=== PATIENT | female | born 1995 | race Caucasian/White ===

== ENCOUNTER → 2019-09-07 13:53 | Outpatient (CLI) | payer OTHER, MEDICAID, SELFPAY ==
[2019-09-07 14:50] LABS: Hemoglobin 13.6 g/dL (12.0-16.0); Mean Corpuscular HGB Conc 34.1 % (30-36); Mean Corpuscular Hemoglobin 31.9 PG (26-34); Mean Corpuscular Volume 93.8 fL (80-100); Platelet Count 241 X10^3/uL (150-400); Red Blood Cell Count 4.26 X10^6/uL (4.0-5.2); Red Cell Distribution Width 12.4 % (11.6-14.8); White Blood Cell Count 6.5 X10^3/uL (4.5-11.0)
[2019-09-07 15:38] LABS: Blood Urea Nitrogen 13 mg/dL (7-17); Calcium 9.9 mg/dL (8.4-10.2); Carbon Dioxide 26 mmol/L (22-32); Chloride 102 mmol/L (98-107); Estimated Glomerular Filt Rate > 60.0 mL/min (>60); Glucose 86 mg/dL (70-100); HEMOLYSIS < 15 (0-50); Potassium 3.8 mmol/L (3.4-5.1); Sodium 138 mmol/L (137-145)
[2019-09-07 16:08] LABS: TSH w/ Reflex to FT4 1.06 uIU/mL (0.47-4.68)
[2019-09-07 20:02] LABS: Vitamin D 25 Hydroxy (D3) 33.1 ng/mL (30.0-100.0)
== END ==
PROVIDERS: PCP Registered Nurse Diabetes Educator; Referring Provider Registered Nurse Diabetes Educator; Visit Provider Registered Nurse Diabetes Educator
DX: R45.89 Other symptoms and signs involving emotional state (principal); R53.83 Other fatigue
CPT/HCPCS: 36415; 80048; 82306; 84443; 85027

== ENCOUNTER → 2019-11-03 08:12 | Outpatient (CLI) | payer OTHER, MEDICAID, SELFPAY ==
--- NOTE | 2019-11-03 08:13 | DI.US.S_ITS ---
PROCEDURE: US PELVIC COMPLETE INDICATIONS: DYSMENORRHEA TECHNIQUE: Real-time scanning was performed of the pelvic organs, with image documentation. Additional endovaginal scanning was necessary due to incomplete visualization of the adnexal and endometrial structures by transabdominal scanning. COMPARISON: None. FINDINGS: Transabdominal scanning: Limited scanning through the kidneys shows no hydronephrosis. No pathologic free abdominal or pelvic fluid. Endovaginal scanning: Uterus: Uterus is normal in size at 6.8 x 3.3 x 4.3 cm. The endometrium measures 8.5 mm in combined thickness. There is no endometrial mass or fluid. No discrete uterine fibroid. Ovaries: Right ovary measures 2.8 x 1.6 x 2.6 centimeters in size. Left ovary measures 2.6 x 2.3 x 2.2 cm in size. No gross solid appearing ovarian lesion. Bilateral ovarian follicles are noted measures up to 11 x 7 millimeters in size in right ovary. Normal blood flow is seen in bilateral ovaries on color Doppler images. IMPRESSION: Unremarkable ultrasound examination of uterus and bilateral ovaries. Dictated by: Osvaldo Rojas M.D. on 11/03/2019 at 9:02 Approved by: Osvaldo Rojas M.D. on 11/03/2019 at 9:12
== END ==
PROVIDERS: PCP Registered Nurse Diabetes Educator; Referring Provider Registered Nurse Diabetes Educator; Visit Provider Registered Nurse Diabetes Educator
DX: R10.2 Pelvic and perineal pain (principal); N94.6 Dysmenorrhea, unspecified
CPT/HCPCS: 76830; 76856

== ENCOUNTER 2019-11-08 11:36 | Emergency (ER) | payer OTHER, MEDICAID, SELFPAY ==
[2019-11-08] VITALS (9 sets, daily range): BP systolic 91–114; BP diastolic 53–60; PULSE 59–80; RESP 14; TEMP 36.7; O2SAT 96–100; BMI 17.4
[2019-11-08 12:47] LABS: Amorphous Sediment Urine 2+; Bacteria Urine Moderate (10-30); Culture Indicated Urine Cult Not Indicated; Mucus Urine 3+ (Negative); RBC Urine 0-1/HPF (0-5/HPF); Squamous Epithelial Cell Urine 10-30 /HPF (0-5/HPF); WBC Urine 0-1/HPF (0-5/HPF)
[2019-11-08 13:24] LABS: Add Manual Diff / Slide Review NO; Basophils Absolute Auto 0 /uL (0-100); Basophils Percent Auto 0.2 % (0-2); Eosinophils Absolute Auto 200 /uL (0-450); Eosinophils Percent Auto 2.3 % (2-4); Hematocrit 40.4 % (36-46); Hemoglobin 13.6 g/dL (12.0-16.0); Lymphocytes Absolute Auto 2600 /uL (1100-4500); Lymphocytes Percent Auto 30.7 % (25-40); Mean Corpuscular HGB Conc 33.7 % (30-36); Mean Corpuscular Hemoglobin 31.6 PG (26-34); Mean Corpuscular Volume 93.6 fL (80-100); Monocytes Absolute Auto 500 /uL (0-900); Monocytes Percent Auto 6.1 % (3-14); Neutrophils Absolute Auto 5200 /uL (1500-7000); Neutrophils Percent Auto 60.7 % (50-75); Platelet Count 239 X10^3/uL (150-400); Red Blood Cell Count 4.31 X10^6/uL (4.0-5.2); Red Cell Distribution Width 12.6 % (11.6-14.8); White Blood Cell Count 8.5 X10^3/uL (4.5-11.0)
[2019-11-08 13:32] LABS: INR 1.1 (0.9-1.3); Prothrombin Time 12.6 SECONDS (10.1-12.7)
[2019-11-08 13:35] LABS: PTT Partial Thromboplastin Tim 33 SECONDS (26.4-36.2)
[2019-11-08 13:38] LABS: Alanine Aminotransferase 59 IU/L (<35); Albumin Globulin Ratio 1.6 (1.0-2.8); Alkaline Phosphatase 79 U/L (38-126); Aspartate Aminotransferase 113 IU/L (14-36); BUN Creatinine Ratio 20.3 (6-22); Bilirubin Total 0.7 mg/dL (0.2-1.3); Blood Urea Nitrogen 12 mg/dL (7-17); Calcium 9.9 mg/dL (8.4-10.2); Carbon Dioxide 29 mmol/L (22-32); Chloride 102 mmol/L (98-107); Estimated Glomerular Filt Rate > 60.0 mL/min (>60); Globulin 3.2 g/dL (1.7-4.1); Glucose 94 mg/dL (70-100); HEMOLYSIS < 15 (0-50); Lipase 70 U/L (23-300); Sodium 139 mmol/L (137-145); Total Protein 8.2 g/dL (6.3-8.2)
--- NOTE | 2019-11-08 15:39 | DI.RAD.S_ITS ---
PROCEDURE: XR ACUTE ABDOMEN SERIES INDICATIONS: unable to kleep anything down TECHNIQUE: One view chest and two views of the abdomen were acquired. COMPARISON: None. FINDINGS: Surgical changes and devices: None. Chest: Lungs are clear. Heart size is normal. No pleural effusions. No pneumoperitoneum. Abdomen: Bowel gas pattern is normal. No specific transition point. There is a large amount of stool and gas projecting the rectal vault. No suspicious calcifications. Visualized solid organ contours appear normal. Bones: No suspicious bony lesions. IMPRESSION: No specific evidence of bowel obstruction seen at this time although if the patient's symptoms do not improve, continued surveillance with abdominal series radiographs could be performed. Large amount of stool projects in the rectal vault raising the possibility of fecal impaction/constipation. Dictated by: Smith Wu M.D. on 11/08/2019 at 16:20 Approved by: Smith Wu M.D. on 11/08/2019 at 16:22
[2019-11-08] MEDS: PANTOPRAZOLE 40 MG VIAL 20 MG IV (16:07)
[2019-11-08] MEDS: SODIUM CHLORIDE 0.9% 1,000 ML 1000 ML IV (16:07)
[2019-11-08] MEDS: ONDANSETRON 4 MG/2 ML INJ IV (16:07)
--- NOTE | 2019-11-08 20:46 | ED.ABDPAIN ---
HPI - Abdominal Pain <[facility] - Last Filed: 11/08/19 20:50> General Chief Complaint: Abdominal Pain Stated Complaint: stomach ache Time Seen by Provider: 11/08/19 15:03 Source: patient Mode of arrival: Ambulatory Limitations: no limitations History of Present Illness HPI narrative: The patient is a 24-year-old female nonsmoker with history of nausea and abdominal pain who presents with a chief complaint of abdominal pain ongoing for the past several months. She states she is having a hard time keeping anything down. She states that she has been unable to eat without throwing up for the past several months. She states she cannot keep anything down, states her last bowel movement was a few days ago. Denies any fevers states she can keep down water. Denies any dysuria urgency or frequency. She has not been to her PCP for this. Denies any specific medical history though notes she had a recent pelvic ultrasound. Related Data Previous Rx's Medication Instructions Recorded erythromycin 5 mg/gram (0.5 %) eye See Rx Instructions .ROUTE 09/05/19 ointment .COMPLEX #3.5 gram omeprazole 20 mg PO DAILY #14 cap 11/08/19 ondansetron 4 mg PO Q6H PRN #20 tab 11/08/19 Allergies Allergy/AdvReac Type Severity Reaction Status Date / Time control pill Allergy Severe rash Uncoded 10/27/19 14:13 Review of Systems <RENAE Stinson - Last Filed: 11/08/19 20:50> Review of Systems Narrative: GENERAL: Denies chills, fatigue, malaise, fever, sweats. HEENT: Denies sinus pain, ear pain, sore throat, difficulty swallowing, dizziness. RESPIRATORY: Denies dyspnea, cough, wheezing, hemoptysis, sputum. CARDIOVASCULAR: Denies chest pain, palpitations, orthopnea, edema, GASTROINTESTINAL: See HPI : Denies dysuria, frequency, incontinence, hematuria, urinary retention. MUSCULOSKELETAL: denies weakness, joint pain, or bony pain SKIN: Denies rash, skin lesions, or other NEUROLOGIC: Denies weakness, headache, numbness, change in speech, confusion, seizures, incoordination. PSYCHIATRIC: No concerning psychosocial issues. 12 point review of systems is negative except for those stated above Patient History <RENAE Stinson - Last Filed: 11/08/19 20:50> Medical History Blepharitis (Acute) Depressed mood (Acute) Fatigue (Acute) Nasal fracture (Acute) Pelvic pain (Acute) Trapezius muscle spasm (Acute) Social History Smoking Status: Unknown if ever smoked second hand exposure: No alcohol intake: current substance use type: marijuana Smoking Status: Unknown if ever smoked alcohol intake frequency: holidays/special occasions only Substance Use Type: does not use Exam <WILFRED Stinson - Last Filed: 11/08/19 20:50> Narrative Exam Narrative: GENERAL: This is a well-nourished, well-developed patient, in no acute distress HEAD: Atraumatic. Normocephalic. No temporal or scalp tenderness. EYES: Pupils equal round and reactive. Extraocular motions intact. No scleral icterus. No injection or drainage. ENT: Nose without bleeding, purulent drainage or septal hematoma. Throat without erythema, tonsillar hypertrophy or exudate. Uvula midline. Airway patent. NECK: Trachea midline. No JVD or lymphadenopathy. Supple, nontender, no meningeal signs. CARDIOVASCULAR: Regular rate and rhythm without murmurs, gallops, or rubs. RESPIRATORY: Clear to auscultation. Breath sounds equal bilaterally. No wheezes, rales, or rhonchi. No cough. No increased respiratory effort. No accessory muscle use. GASTROINTESTINAL: Abdomen soft, non-tender, nondistended. No hepato-splenomegaly, or palpable masses. No guarding. Active bowel sounds all 4 quadrants. No pain to palpation or guarding noted. EXTREMITIES: No clubbing, cyanosis, or edema. No joint tenderness, effusion, or edema noted. BACK: Nontender without deformity or crepitance. No flank tenderness. NEURO: AOx3. SKIN: No rash or erythema on visible skin Initial Vital Signs Initial Vital Signs: Vital Signs Temperature 98.1 F 11/08/19 11:45 Pulse Rate 79 11/08/19 11:45 Respiratory Rate 14 11/08/19 11:45 Blood Pressure 114/56 L 11/08/19 11:45 Pulse Oximetry 100 11/08/19 11:45 <Alida Sharif MD - Last Filed: 11/11/19 12:55> Initial Vital Signs Initial Vital Signs: Vital Signs Temperature 98.1 F 11/08/19 11:45 Pulse Rate 79 11/08/19 11:45 Respiratory Rate 14 11/08/19 11:45 Blood Pressure 114/56 L 11/08/19 11:45 Pulse Oximetry 100 11/08/19 11:45 Scores <WILFRED Stinson - Last Filed: 11/08/19 20:50> GCS Diaz coma scale eye opening: Spontaneous [place] coma scale verbal response: Orientated Diaz coma scale motor response: Obey commands Diaz coma scale total score: 15 Course <WILFRED Stinson - Last Filed: 11/08/19 20:50> Orders Ordered: Discontinued Medications Sodium Chloride (Normal Saline 0.9%) 1,000 mls @ 1,000 mls/hr IV BOLUS ONE Stop: 11/08/19 16:38 Last Infusion: 11/08/19 17:46 Dose: 0 mls/hr Documented by: Admin: 11/08/19 16:07 Dose: 1,000 mls/hr Documented by: WHITNEY Ondansetron HCl (Zofran) 4 mg IV NOW ONE Stop: 11/08/19 15:40 Last Admin: 11/08/19 16:07 Dose: 4 mg Documented by: WHITNEY Pantoprazole Sodium (Protonix) 20 mg IV NOW ONE Stop: 11/08/19 15:40 Last Admin: 11/08/19 16:07 Dose: 20 mg Documented by: WHINTEY Vital Signs Vital signs: Vital Signs - 8 hr 11/08/19 14:41 11/08/19 15:00 11/08/19 15:30 Pulse Rate 64 69 59 L Blood Pressure 109/53 L 91/60 106/60 Pulse Oximetry 100 100 99 11/08/19 16:04 11/08/19 16:30 11/08/19 17:00 Pulse Rate 65 68 80 Blood Pressure Pulse Oximetry 96 100 100 11/08/19 17:30 11/08/19 17:56 Pulse Rate 80 62 Blood Pressure 104/59 L Pulse Oximetry 100 100 <Alida Sharif MD - Last Filed: 11/11/19 12:55> Orders Ordered: Discontinued Medications Sodium Chloride (Normal Saline 0.9%) 1,000 mls @ 1,000 mls/hr IV BOLUS ONE Stop: 11/08/19 16:38 Last Infusion: 11/08/19 17:46 Dose: 0 mls/hr Documented by: Admin: 11/08/19 16:07 Dose: 1,000 mls/hr Documented by: WHITNEY Ondansetron HCl (Zofran) 4 mg IV NOW ONE Stop: 11/08/19 15:40 Last Admin: 11/08/19 16:07 Dose: 4 mg Documented by: WHITNEY Pantoprazole Sodium (Protonix) 20 mg IV NOW ONE Stop: 11/08/19 15:40 Last Admin: 11/08/19 16:07 Dose: 20 mg Documented by: WHITNEY Vital Signs Vital signs: Vital Signs - 8 hr 11/08/19 14:41 11/08/19 15:00 11/08/19 15:30 Pulse Rate 64 69 59 L Blood Pressure 109/53 L 91/60 106/60 Pulse Oximetry 100 100 99 11/08/19 16:04 11/08/19 16:30 11/08/19 17:00 Pulse Rate 65 68 80 Blood Pressure Pulse Oximetry 96 100 100 11/08/19 17:30 11/08/19 17:56 Pulse Rate 80 62 Blood Pressure 104/59 L Pulse Oximetry 100 100 MDM - Abdominal Pain <NICOLE Stinson-BC - Last Filed: 11/08/19 20:50> Lab Data Result diagrams: 11/08/19 13:05 11/08/19 13:05 Labs: Lab Results 11/08/19 11/08/19 11/08/19 Range/Units 11:52 13:05 13:05 WBC 8.5 (4.5-11.0) X10^3/uL RBC 4.31 (4.0-5.2) X10^6/uL Hgb 13.6 (12.0-16.0) g/dL Hct 40.4 (36-46) % MCV 93.6 (80-100) fL MCH 31.6 (26-34) PG MCHC 33.7 (30-36) % RDW 12.6 (11.6-14.8) % Plt Count 239 (150-400) X10^3/uL Neut % (Auto) 60.7 (50-75) % Lymph % (Auto) 30.7 (25-40) % [place] % (Auto) 6.1 (3-14) % Eos % (Auto) 2.3 (2-4) % Baso % (Auto) 0.2 (0-2) % Neut # (Auto) 5200 (1849-6627) /uL Lymph # (Auto) 2600 (3969-1058) /uL [place] # (Auto) 500 (0-900) /uL Eos # (Auto) 200 (0-450) /uL Baso # (Auto) 0 (0-100) /uL PT 12.6 (10.1-12.7) SECONDS INR 1.1 (0.9-1.3) APTT 33 (26.4-36.2) SECONDS Sodium (137-145) mmol/L Potassium (3.4-5.1) mmol/L Chloride (98-107) mmol/L Carbon Dioxide (22-32) mmol/L BUN (7-17) mg/dL Creatinine (0.52-1.04) mg/dL Estimated GFR (>60) mL/min BUN/Creatinine Ratio (6-22) Glucose (70-100) mg/dL Calcium (8.4-10.2) mg/dL Total Bilirubin (0.2-1.3) mg/dL AST (14-36) IU/L ALT (<35) IU/L Alkaline Phosphatase (38-126) U/L Total Protein (6.3-8.2) g/dL Albumin (3.5-5.0) g/dL Globulin (1.7-4.1) g/dL Albumin/Globulin Ratio (1.0-2.8) Lipase (23-300) U/L Urine RBC 0-1/hpf (0-5/HPF) Urine WBC 0-1/hpf (0-5/HPF) Ur Squamous Epith Cells 10-30 /hpf H (0-5/HPF) Amorphous Sediment 2+ Urine Bacteria Moderate (10-30) H (None) Urine Mucus 3+ H (Negative) Ur Culture Indicated? Cult not indicated 11/08/19 Range/Units 13:05 WBC (4.5-11.0) X10^3/uL RBC (4.0-5.2) X10^6/uL Hgb (12.0-16.0) g/dL Hct (36-46) % MCV (80-100) fL MCH (26-34) PG MCHC (30-36) % RDW (11.6-14.8) % Plt Count (150-400) X10^3/uL Neut % (Auto) (50-75) % Lymph % (Auto) (25-40) % [place] % (Auto) (3-14) % Eos % (Auto) (2-4) % Baso % (Auto) (0-2) % Neut # (Auto) (1405-6734) /uL Lymph # (Auto) (0659-1307) /uL [place] # (Auto) (0-900) /uL Eos # (Auto) (0-450) /uL Baso # (Auto) (0-100) /uL PT (10.1-12.7) SECONDS INR (0.9-1.3) APTT (26.4-36.2) SECONDS Sodium 139 (137-145) mmol/L Potassium 4.0 (3.4-5.1) mmol/L Chloride 102 (98-107) mmol/L Carbon Dioxide 29 (22-32) mmol/L BUN 12 (7-17) mg/dL Creatinine 0.59 (0.52-1.04) mg/dL Estimated GFR > 60.0 (>60) mL/min BUN/Creatinine Ratio 20.3 (6-22) Glucose 94 (70-100) mg/dL Calcium 9.9 (8.4-10.2) mg/dL Total Bilirubin 0.7 (0.2-1.3) mg/dL AST 113 H (14-36) IU/L ALT 59 H (<35) IU/L Alkaline Phosphatase 79 (38-126) U/L Total Protein 8.2 (6.3-8.2) g/dL Albumin 5.0 (3.5-5.0) g/dL Globulin 3.2 (1.7-4.1) g/dL Albumin/Globulin Ratio 1.6 (1.0-2.8) Lipase 70 (23-300) U/L Urine RBC (0-5/HPF) Urine WBC (0-5/HPF) Ur Squamous Epith Cells (0-5/HPF) Amorphous Sediment Urine Bacteria (None) Urine Mucus (Negative) Ur Culture Indicated? Point of care testing: Point of Care Testing Test Results Negative Urine Dip Bedside Urine Glucose Negative Bedside Urine Bilirubin - Negative Bedside Urine Ketone +/- 5 Urine Specific [place] 1.015 Bedside Urine Occult Blood - Negative Bedside Urine pH 6.5 Bedside Urine Protein - Negative Bedside Urine Urobilinogen - Negative Bedside Urine Nitrite - Negative Bedside Urine Leukocytes - Negative Esterase Imaging Data Abdominal x-ray: Radiologist's Impression: [address] [address] XRay Report Signed Patient: Raisa Crawford VMR#: [id number] : 1995Acct:[id number] Age/Sex: 24 / FDate of Service: 11/08/19 Loc: ED Accession Number: [id number] Procedure: XR acute abdomen series Ordering Provider: Laura Barroso PROCEDURE: XR ACUTE ABDOMEN SERIES INDICATIONS: unable to kleep anything down TECHNIQUE: One view chest and two views of the abdomen were acquired. COMPARISON: None. FINDINGS: Surgical changes and devices: None. Chest: Lungs are clear. Heart size is normal. No pleural effusions. No pneumoperitoneum. Abdomen: Bowel gas pattern is normal. No specific transition point. There is a large amount of stool and gas projecting the rectal vault. No suspicious calcifications. Visualized solid organ contours appear normal. Bones: No suspicious bony lesions. IMPRESSION: No specific evidence of bowel obstruction seen at this time although if the patient's symptoms do not improve, continued surveillance with abdominal series radiographs could be performed. Large amount of stool projects in the rectal vault raising the possibility of fecal impaction/constipation. Dictated by: Smith Wu M.D. on 11/08/2019 at 16:20 Approved by: Smith Wu M.D. on 11/08/2019 at 16:22 ECG Data Attestation: I personally reviewed and interpreted this ECG as follows: Interpretation: Ventricular rate 62. P.r. interval 166. QRS 78. Viewed by Dr Sharif [facility] Narrative Medical decision making narrative: The patient is a 25-year-old female who presents with worsening of several months of ongoing abdominal pain. Her lab work is good grossly reassuring, no leukocytosis. She does have of AST and ALT, though no pain to abdominal palpation. Urine has no signs of infection. The patient feels much improved after single dose of Protonix as well as Zofran. She states that she is in no acute discomfort has no nausea. The patient denies any pain after medication administration. She was able to tolerate p.o. food and fluids. I did give her prescriptions there of. I encouraged her to follow up with primary care provider in the next 48-72 hours. Discussed going back to the ER for any acute concerns. Patient has no questions or concerns upon discharge and states understanding return precautions as well as follow-up care. <Alida Sharif MD - Last Filed: 11/11/19 12:55> Lab Data Labs: Lab Results 11/08/19 11/08/19 11/08/19 Range/Units 11:52 13:05 13:05 WBC 8.5 (4.5-11.0) X10^3/uL RBC 4.31 (4.0-5.2) X10^6/uL Hgb 13.6 (12.0-16.0) g/dL Hct 40.4 (36-46) % MCV 93.6 (80-100) fL MCH 31.6 (26-34) PG MCHC 33.7 (30-36) % RDW 12.6 (11.6-14.8) % Plt Count 239 (150-400) X10^3/uL Neut % (Auto) 60.7 (50-75) % Lymph % (Auto) 30.7 (25-40) % [place] % (Auto) 6.1 (3-14) % Eos % (Auto) 2.3 (2-4) % Baso % (Auto) 0.2 (0-2) % Neut # (Auto) 5200 (4443-0964) /uL Lymph # (Auto) 2600 (1651-2312) /uL [place] # (Auto) 500 (0-900) /uL Eos # (Auto) 200 (0-450) /uL Baso # (Auto) 0 (0-100) /uL PT 12.6 (10.1-12.7) SECONDS INR 1.1 (0.9-1.3) APTT 33 (26.4-36.2) SECONDS Sodium (137-145) mmol/L Potassium (3.4-5.1) mmol/L Chloride (98-107) mmol/L Carbon Dioxide (22-32) mmol/L BUN (7-17) mg/dL Creatinine (0.52-1.04) mg/dL Estimated GFR (>60) mL/min BUN/Creatinine Ratio (6-22) Glucose (70-100) mg/dL Calcium (8.4-10.2) mg/dL Total Bilirubin (0.2-1.3) mg/dL AST (14-36) IU/L ALT (<35) IU/L Alkaline Phosphatase (38-126) U/L Total Protein (6.3-8.2) g/dL Albumin (3.5-5.0) g/dL Globulin (1.7-4.1) g/dL Albumin/Globulin Ratio (1.0-2.8) Lipase (23-300) U/L Urine RBC 0-1/hpf (0-5/HPF) Urine WBC 0-1/hpf (0-5/HPF) Ur Squamous Epith Cells 10-30 /hpf H (0-5/HPF) Amorphous Sediment 2+ Urine Bacteria Moderate (10-30) H (None) Urine Mucus 3+ H (Negative) Ur Culture Indicated? Cult not indicated 11/08/19 Range/Units 13:05 WBC (4.5-11.0) X10^3/uL RBC (4.0-5.2) X10^6/uL Hgb (12.0-16.0) g/dL Hct (36-46) % MCV (80-100) fL MCH (26-34) PG MCHC (30-36) % RDW (11.6-14.8) % Plt Count (150-400) X10^3/uL Neut % (Auto) (50-75) % Lymph % (Auto) (25-40) % [place] % (Auto) (3-14) % Eos % (Auto) (2-4) % Baso % (Auto) (0-2) % Neut # (Auto) (6475-1625) /uL Lymph # (Auto) (2836-5126) /uL [place] # (Auto) (0-900) /uL Eos # (Auto) (0-450) /uL Baso # (Auto) (0-100) /uL PT (10.1-12.7) SECONDS INR (0.9-1.3) APTT (26.4-36.2) SECONDS Sodium 139 (137-145) mmol/L Potassium 4.0 (3.4-5.1) mmol/L Chloride 102 (98-107) mmol/L Carbon Dioxide 29 (22-32) mmol/L BUN 12 (7-17) mg/dL Creatinine 0.59 (0.52-1.04) mg/dL Estimated GFR > 60.0 (>60) mL/min BUN/Creatinine Ratio 20.3 (6-22) Glucose 94 (70-100) mg/dL Calcium 9.9 (8.4-10.2) mg/dL Total Bilirubin 0.7 (0.2-1.3) mg/dL AST 113 H (14-36) IU/L ALT 59 H (<35) IU/L Alkaline Phosphatase 79 (38-126) U/L Total Protein 8.2 (6.3-8.2) g/dL Albumin 5.0 (3.5-5.0) g/dL Globulin 3.2 (1.7-4.1) g/dL Albumin/Globulin Ratio 1.6 (1.0-2.8) Lipase 70 (23-300) U/L Urine RBC (0-5/HPF) Urine WBC (0-5/HPF) Ur Squamous Epith Cells (0-5/HPF) Amorphous Sediment Urine Bacteria (None) Urine Mucus (Negative) Ur Culture Indicated? Point of care testing: Point of Care Testing Test Results Negative Urine Dip Bedside Urine Glucose Negative Bedside Urine Bilirubin - Negative Bedside Urine Ketone +/- 5 Urine Specific [place] 1.015 Bedside Urine Occult Blood - Negative Bedside Urine pH 6.5 Bedside Urine Protein - Negative Bedside Urine Urobilinogen - Negative Bedside Urine Nitrite - Negative Bedside Urine Leukocytes - Negative Esterase Discharge Plan Departure Patient Disposition: Home Clinical Impression: Nausea Abdominal pain Qualifiers: Abdominal location: epigastric Qualified Code(s): R10.13 - Epigastric pain Constipation Qualifiers: Constipation type: unspecified constipation type Qualified Code(s): K59.00 - Constipation, unspecified Discharge Date/Time: 11/08/19 18:06 Instructions: DI for Abdominal Pain-Adult, DI for Constipation, DI for Nausea -- Adult Activity Restrictions/Additional Instructions: Thank you for trusting us with your care today. Overall your evaluation came back well. As discussed[facility] Please follow-up with primary care provider in the next 48-72 hours. I also suggest coming back to the emergency department for any acute concerns such as inability keep down fluids. Prescriptions: New ondansetron 4 mg tablet,disintegrating 4 mg PO Q6H PRN (Reason: nausea and vomiting) Qty: 20 RF: 0 omeprazole 20 mg capsule,delayed release(DR/EC) 20 mg PO DAILY Qty: 14 RF: 0 No Action erythromycin 5 mg/gram (0.5 %) ointment See Rx Instructions .ROUTE .COMPLEX Qty: 3.5 RF: 0 Referrals: Leandro Bennett ARNP [Primary Care Provider] - <Alida Sharif MD - Last Filed: 11/11/19 12:55> Cosign ED Attending Cosbruceature Attestation: I was immediately available in the department for consultation throughout this patient's visit. I agree with documentation as above. Alida Sharif MD
== END 2019-11-08 18:06 | disposition home or self-care (01) ==
PROVIDERS: Emergency Medicine; Emergency Provider Nurse Practitioner Family; PCP Registered Nurse Diabetes Educator
DX: R10.13 Epigastric pain (principal); K59.00 Constipation, unspecified; R11.0 Nausea
CPT/HCPCS: 36415; 74022; 80053; 81003; 81015; 81025; 83690; 85025; 85610; 85730; 93005; 96361; 96374; 96375; 99284; C9113; J2405

== ENCOUNTER → 2020-07-31 15:15 | Outpatient (CLI) | payer OTHER, MEDICAID, SELFPAY ==
[2020-07-31 15:24] LABS: Bacteria Urine None Seen; RBC Urine None Seen (0-5/HPF)
[2020-07-31 15:56] LABS: Add Manual Diff / Slide Review NO; Basophils Absolute Auto 0 /uL (0-100); Basophils Percent Auto 0.2 % (0-2); Eosinophils Absolute Auto 200 /uL (0-450); Eosinophils Percent Auto 2.3 % (2-4); Hematocrit 39.9 % (36-46); Hemoglobin 13.3 g/dL (12.0-16.0); Lymphocytes Absolute Auto 2400 /uL (1100-4500); Mean Corpuscular HGB Conc 33.3 % (30-36); Mean Corpuscular Hemoglobin 30.5 PG (26-34); Mean Corpuscular Volume 91.6 fL (80-100); Monocytes Absolute Auto 400 /uL (0-900); Monocytes Percent Auto 5.1 % (3-14); Neutrophils Absolute Auto 4400 /uL (1500-7000); Neutrophils Percent Auto 59.4 % (50-75); Platelet Count 254 X10^3/uL (150-400); Red Blood Cell Count 4.35 X10^6/uL (4.0-5.2); Red Cell Distribution Width 12.6 % (11.6-14.8); White Blood Cell Count 7.3 X10^3/uL (4.5-11.0)
[2020-07-31 16:51] LABS: Alanine Aminotransferase 9 IU/L (<35); Albumin 4.6 g/dL (3.5-5.0); Albumin Globulin Ratio 1.4 (1.0-2.8); Alkaline Phosphatase 83 U/L (38-126); Aspartate Aminotransferase 23 IU/L (14-36); BUN Creatinine Ratio 23.7 (6-22); Bilirubin Total 0.4 mg/dL (0.2-1.3); Blood Urea Nitrogen 14 mg/dL (7-17); Calcium 9.3 mg/dL (8.4-10.2); Carbon Dioxide 25 mmol/L (22-32); Chloride 104 mmol/L (98-107); Estimated Glomerular Filt Rate > 60.0 mL/min (>60); Globulin 3.3 g/dL (1.7-4.1); Glucose 92 mg/dL (70-100); HEMOLYSIS < 15 (0-50); Potassium 3.9 mmol/L (3.4-5.1); Sodium 138 mmol/L (137-145); Total Protein 7.9 g/dL (6.3-8.2)
[2020-07-31 16:53] LABS: Appearance Urine UA CLEAR; Bilirubin Urine UA NEGATIVE (NEGATIVE); Color Urine UA YELLOW; Glucose Urine UA NEGATIVE (Negative); Ketones Urine UA NEGATIVE (NEGATIVE); Leukocyte Esterase Urine UA NEGATIVE (NEGATIVE); Nitrite Urine UA NEGATIVE (Negative); Occult Blood Urine UA NEGATIVE (Negative); Protein Urine UA NEGATIVE (Negative); Specific Gravity Urine UA 1.025 (1.000-1.035); Urobilinogen Urine UA 0.2 E.U./dL (0.2)
[2020-07-31 17:02] LABS: Culture Indicated Urine Cult Not Indicated; Squamous Epithelial Cell Urine 5-10 /HPF (0-5/HPF); WBC Urine 0-1/HPF (0-5/HPF)
[2020-07-31 18:20] LABS: Urine N gonorrhoeae NOT DETECTED
[2020-07-31 18:25] LABS: Urine Chlamydia NOT DETECTED
[2020-08-01 03:09] LABS: Hepatitis B Core AB w/Reflex Negative (Negative)
[2020-08-01 08:16] LABS: HSV 2 IGG AB < 0.91 index (0.00-0.90); HSV1IGG < 0.91 index (0.00-0.90); RPR Screen Non Reactive (Non Reactive)
[2020-08-02 16:33] LABS: Hepatitis B Surface Antigen NEGATIVE s/c (NEGATIVE)
[2020-08-02 16:43] LABS: HIV 1 & 2 Ab/Ag 4th Gen Combo NEGATIVE (NEGATIVE); Hep C Virus Ab w/Reflex Quant NEGATIVE s/c (NEGATIVE)
== END ==
PROVIDERS: PCP Registered Nurse Diabetes Educator; Referring Provider Registered Nurse Diabetes Educator; Visit Provider Registered Nurse Diabetes Educator
DX: K52.9 Noninfective gastroenteritis and colitis, unspecified (principal); Z72.51 High risk heterosexual behavior; R10.9 Unspecified abdominal pain
CPT/HCPCS: 80053; 81001; 85025; 86592; 86695; 86696; 86704; 86803; 87340; 87389; 87491; 87591

== ENCOUNTER → 2020-08-09 07:46 | Outpatient (CLI) | payer OTHER, MEDICAID, SELFPAY ==
--- NOTE | 2020-08-09 07:47 | DI.RAD.S_ITS ---
PROCEDURE: XR THORACIC SPINE 2V INDICATIONS: eval chronic upper back and neck pain TECHNIQUE: 2 views of the thoracic spine were acquired. COMPARISON: None. FINDINGS: Bones: No acute fracture identified. Mild lateral curvature of the spine. Mild endplate spurring. Disc spaces grossly preserved. Soft tissues: No paravertebral stripe thickening. IMPRESSION: Unremarkable examination as above Dictated by: Smith Wu M.D. on 08/09/2020 at 11:40 Approved by: Smith Wu M.D. on 08/09/2020 at 11:41
--- NOTE | 2020-08-09 07:47 | DI.US.S_ITS ---
PROCEDURE: US ABDOMEN COMPLETE INDICATIONS: 4 MONTH LOWER ABDOMINAL PAIN AND BLOATING INTERMITTEN TECHNIQUE: Real-time scanning was performed of the abdominal and retroperitoneal organs, with image documentation. COMPARISON: None. FINDINGS: Liver: Liver is normal in size and homogeneous in echotexture. Gallbladder: No findings of gallstones or sludge are seen. The gallbladder wall is not thickened, measuring 3 mm or less. No specific pericholecystic fluid is seen. The sonographic Sanderson sign is negative. Biliary ducts: Intrahepatic bile ducts are non-dilated. Extrahepatic bile duct caliber measures 4 mm. Normal is 6-7 mm or less in diameter, or 10 mm or less post-cholecystectomy. Pancreas: Visualized portions of the pancreas are sonographically normal. Spleen: Spleen is normal in size and homogeneous in echotexture. Kidneys: Kidneys are normal in size and echotexture. Right kidney measures 9.8 cm long; left kidney measures 10.1 cm long. No hydronephrosis or nephrolithiasis. No solid masses. Aorta: Visualized aorta is normal in caliber at less than 3 cm. Iliacs: Proximal common iliac arteries are normal in caliber at less than 2.5 cm. IVC: Intrahepatic inferior vena cava is patent. Miscellaneous: No free abdominal fluid. IMPRESSION: The gallbladder demonstrates a normal sonographic appearance. No biliary dilatation is seen. Normal ultrasound. Dictated by: Garrison Spicer M.D. on 08/09/2020 at 15:35 Approved by: Garrison Spicer M.D. on 08/09/2020 at 15:35
--- NOTE | 2020-08-09 07:47 | DI.RAD.S_ITS ---
PROCEDURE: XR CERVICAL SPINE 2V OR 3V INDICATIONS: eval chronic upper back and neck pain TECHNIQUE: 3 view(s) of the cervical spine were acquired. COMPARISON: None. FINDINGS: Bones: No fractures or dislocations to the T1 level. The lateral masses of C1 appear intact on the odontoid view. No suspicious bony lesions. Straightening of the normal lordotic curvature. Disc spaces grossly preserved Soft tissues: No prevertebral soft tissue swelling. IMPRESSION: Straightening of the normal lordotic curvature. If the patient's pain or other symptoms persist, consider further evaluation with MRI Dictated by: Smith Wu M.D. on 08/09/2020 at 11:39 Approved by: Smith Wu M.D. on 08/09/2020 at 11:40
== END ==
PROVIDERS: PCP Registered Nurse Diabetes Educator; Referring Provider Registered Nurse Diabetes Educator; Visit Provider Registered Nurse Diabetes Educator
DX: R10.30 Lower abdominal pain, unspecified (principal); M54.2 Cervicalgia; M54.6 Pain in thoracic spine; K52.9 Noninfective gastroenteritis and colitis, unspecified; G89.29 Other chronic pain; Z72.51 High risk heterosexual behavior
CPT/HCPCS: 72040; 72070; 76700

== ENCOUNTER 2020-11-19 16:18 | Emergency (ER) | payer OTHER, MEDICAID, SELFPAY ==
[2020-11-19] VITALS (10 sets, daily range): BP systolic 106–135; BP diastolic 66–87; PULSE 61–73; RESP 18; TEMP 36.6; O2SAT 98–100
[2020-11-19 16:44] LABS: Add Manual Diff / Slide Review NO; Basophils Absolute Auto 0 /uL (0-100); Basophils Percent Auto 0.3 % (0-2); Eosinophils Absolute Auto 0 /uL (0-450); Eosinophils Percent Auto 0.5 % (2-4); Hematocrit 40.2 % (36-46); Hemoglobin 13.5 g/dL (12.0-16.0); Lymphocytes Absolute Auto 1800 /uL (1100-4500); Mean Corpuscular HGB Conc 33.5 % (30-36); Mean Corpuscular Volume 92.4 fL (80-100); Monocytes Absolute Auto 300 /uL (0-900); Monocytes Percent Auto 5.2 % (3-14); Neutrophils Absolute Auto 4100 /uL (1500-7000); Platelet Count 240 X10^3/uL (150-400); Red Blood Cell Count 4.35 X10^6/uL (4.0-5.2); Red Cell Distribution Width 12.6 % (11.6-14.8); White Blood Cell Count 6.3 X10^3/uL (4.5-11.0)
[2020-11-19 16:55] LABS: Alanine Aminotransferase 14 IU/L (<35); Albumin 4.8 g/dL (3.5-5.0); Albumin Globulin Ratio 1.6 (1.0-2.8); Alkaline Phosphatase 104 U/L (38-126); Aspartate Aminotransferase 26 IU/L (14-36); BUN Creatinine Ratio 27.1 (6-22); Bilirubin Total 0.5 mg/dL (0.2-1.3); Blood Urea Nitrogen 13 mg/dL (7-17); Calcium 9.6 mg/dL (8.4-10.2); Carbon Dioxide 26 mmol/L (22-32); Chloride 104 mmol/L (98-107); Estimated Glomerular Filt Rate > 60.0 mL/min (>60); Glucose 104 mg/dL (70-100); HEMOLYSIS < 15 (0-50); Lipase 82 U/L (23-300); Potassium 3.6 mmol/L (3.4-5.1); Sodium 139 mmol/L (137-145); Total Protein 7.8 g/dL (6.3-8.2)
[2020-11-19 17:15] LABS: COVID19 -Nasal RAPID Negative (Negative)
--- NOTE | 2020-11-19 20:58 | ED_ITS ---
HPI - Weakness General Chief complaint: Weakness Stated complaint: WEAKNESS Time Seen by Provider: 11/19/20 20:55 Source: patient Mode of arrival: Ambulatory Limitations: no limitations History of Present Illness HPI Narrative: This is a 25-year-old female with complaint of weakness and lightheadedness in the shower today. Patient states for the last month she has really been eating she feels hungry she will feel nauseous sometimes but does not initial have vomiting. She has tried protein shakes with sometimes makes her abdomen is crampy. She denies any distinct abdominal pain describes discomfort when she is hungry. Patient denies any chest pain or shortness of breath she has not passed out. She occasionally felt cold and sweaty. She denies any cough, cold or congestion. She has had normal bowel movements. She has not had any black or bloody stools. She has had normal urination. She has had her normal vaginal discharge with no new changes. No changes to menses. She denies any depression. When asked specifically if she has the desire to eat she says she does potential start chewing and states that becomes gross and she does not eat the food. She denies any past medical issues. No prior surgeries. She has an allergy to some oral contraceptive which she no longer takes. No tobacco, alcohol or illicit. Both her brother and her father had rocks in her stomach which I suspect she means gallstones. She has seen her primary care physician as she has lost about 12 lb over the last 1-2 months. Related Data Previous Rx's Medication Instructions Recorded erythromycin 5 mg/gram (0.5 %) eye See Rx Instructions .ROUTE 04/04/20 ointment .COMPLEX #50 gram Allergies Allergy/AdvReac Type Severity Reaction Status Date / Time control pill Allergy Severe rash Uncoded 08/27/20 08:02 Review of Systems Review of Systems ROS Unobtainable: All systems reviewed & are unremarkable except as noted in HPI and below Patient History Medical History Blepharitis Chronic upper back pain Depressed mood Depression Fatigue IBS (irritable bowel syndrome) Liver enzyme elevation Nasal fracture Pelvic pain Trapezius muscle spasm Social History Smoking Status: Never smoker second hand exposure: No alcohol intake: current substance use type: marijuana Smoking Status: Never smoker alcohol intake frequency: holidays/special occasions only Substance Use Type: does not use Exam Narrative Exam Narrative: GENERAL: Alert and oriented x three, very thin appearing male in mild distress. HEENT: Head normocephalic, atraumatic, EOMI, pupils reactive, face symmetric, moist mucous membranes NECK: Supple, full range of motion CARDIOVASCULAR: Regular rate and rhythm without murmurs, rubs or gallops. RESPIRATORY: Breath sounds equal bilaterally, no wheezes rales or rhonchi. ABDOMEN: Soft, nontender. Normoactive bowel sounds all 4 quadrants. No guarding or rebound, rigidity, no mass : No CVA tenderness EXTREMITIES: Normal range of motion, no clubbing or edema. Neurovascularly intact NEUROLOGICAL: Cranial nerves II through XII grossly intact. Moving all extremities SKIN: Warm, dry, no petechiae, no rashes or lesions. PSYCH: Flat affect, denies depression or mood disorder Initial Vital Signs Initial Vital Signs: Vital Signs Temperature 97.9 F 11/19/20 16:27 Pulse Rate 67 11/19/20 16:27 Respiratory Rate 18 11/19/20 16:27 Blood Pressure 135/83 11/19/20 16:27 Pulse Oximetry 100 11/19/20 16:27 Course Orders Ordered: ED Orders 11/19/20 21:12 US abdomen limited Stat Discontinued Medications Sodium Chloride (Normal Saline 0.9%) 1,000 mls @ 1,000 mls/hr IV BOLUS ONE Stop: 11/19/20 21:40 Last Infusion: 11/19/20 22:22 Dose: 0 mls/hr Documented by: MARY LOU Admin: 11/19/20 21:22 Dose: 1,000 mls/hr Documented by: MARY LOU Vital Signs Vital signs: Vital Signs - 8 hr 11/19/20 21:00 11/19/20 21:30 11/19/20 22:00 Pulse Rate 71 69 61 Blood Pressure 106/68 111/73 109/71 Pulse Oximetry 98 98 99 MDM - Weakness Lab Data Result diagrams: 11/19/20 16:30 11/19/20 16:30 Labs: Lab Results 11/19/20 11/19/20 11/19/20 Range/Units 16:30 16:30 16:30 WBC 6.3 (4.5-11.0) X10^3/uL RBC 4.35 (4.0-5.2) X10^6/uL Hgb 13.5 (12.0-16.0) g/dL Hct 40.2 (36-46) % MCV 92.4 (80-100) fL MCH 31.0 (26-34) PG MCHC 33.5 (30-36) % RDW 12.6 (11.6-14.8) % Plt Count 240 (150-400) X10^3/uL Neut % (Auto) 65.0 (50-75) % Lymph % (Auto) 29.0 (25-40) % [place] % (Auto) 5.2 (3-14) % Eos % (Auto) 0.5 L (2-4) % Baso % (Auto) 0.3 (0-2) % Neut # (Auto) 4100 (4513-7869) /uL Lymph # (Auto) 1800 (4648-1036) /uL [place] # (Auto) 300 (0-900) /uL Eos # (Auto) 0 (0-450) /uL Baso # (Auto) 0 (0-100) /uL Sodium 139 (137-145) mmol/L Potassium 3.6 (3.4-5.1) mmol/L Chloride 104 (98-107) mmol/L Carbon Dioxide 26 (22-32) mmol/L BUN 13 (7-17) mg/dL Creatinine 0.48 L (0.52-1.04) mg/dL Estimated GFR > 60.0 (>60) mL/min BUN/Creatinine Ratio 27.1 H (6-22) Glucose 104 H (70-100) mg/dL Calcium 9.6 (8.4-10.2) mg/dL Total Bilirubin 0.5 (0.2-1.3) mg/dL AST 26 (14-36) IU/L ALT 14 (<35) IU/L Alkaline Phosphatase 104 (38-126) U/L Total Protein 7.8 (6.3-8.2) g/dL Albumin 4.8 (3.5-5.0) g/dL Globulin 3.0 (1.7-4.1) g/dL Albumin/Globulin Ratio 1.6 (1.0-2.8) Lipase 82 (23-300) U/L TSH (0.47-4.68) uIU/mL SARS-CoV-2 (PCR) Negative (Negative) 11/19/20 Range/Units 16:30 WBC (4.5-11.0) X10^3/uL RBC (4.0-5.2) X10^6/uL Hgb (12.0-16.0) g/dL Hct (36-46) % MCV (80-100) fL MCH (26-34) PG MCHC (30-36) % RDW (11.6-14.8) % Plt Count (150-400) X10^3/uL Neut % (Auto) (50-75) % Lymph % (Auto) (25-40) % [place] % (Auto) (3-14) % Eos % (Auto) (2-4) % Baso % (Auto) (0-2) % Neut # (Auto) (1914-2619) /uL Lymph # (Auto) (7817-7561) /uL [place] # (Auto) (0-900) /uL Eos # (Auto) (0-450) /uL Baso # (Auto) (0-100) /uL Sodium (137-145) mmol/L Potassium (3.4-5.1) mmol/L Chloride (98-107) mmol/L Carbon Dioxide (22-32) mmol/L BUN (7-17) mg/dL Creatinine (0.52-1.04) mg/dL Estimated GFR (>60) mL/min BUN/Creatinine Ratio (6-22) Glucose (70-100) mg/dL Calcium (8.4-10.2) mg/dL Total Bilirubin (0.2-1.3) mg/dL AST (14-36) IU/L ALT (<35) IU/L Alkaline Phosphatase (38-126) U/L Total Protein (6.3-8.2) g/dL Albumin (3.5-5.0) g/dL Globulin (1.7-4.1) g/dL Albumin/Globulin Ratio (1.0-2.8) Lipase (23-300) U/L TSH 0.625 (0.47-4.68) uIU/mL SARS-CoV-2 (PCR) (Negative) Point of Care Testing Test Results Negative Urine Dip Bedside Urine Glucose Negative Bedside Urine Bilirubin - Negative Bedside Urine Ketone +/- 5 Urine Specific [place] 1.030 Bedside Urine Occult Blood - Negative Bedside Urine pH 6.0 Bedside Urine Protein - Negative Bedside Urine Urobilinogen - Negative Bedside Urine Nitrite - Negative Bedside Urine Leukocytes - Negative Esterase Imaging Data US - abdomen: Radiologist Impression: prelim is negative. ECG Data Attestation: I personally reviewed and interpreted this ECG as follows: Interpretation: Sinus rhythm occasional PAC. Rate of 73 NH 160 QRS is 74 and QTC of 423. MDM Narrative Medical decision making narrative: This is a 25-year-old female who presents for weakness and lightheadedness. She appears quite thin. Asked patient if she has been his eating or not eating secondary to lack of desire or depression which she denies or if she feels there is a mental health component. Her labs including TSH are reassuring, and point of care urine are negative. COVID is negative. Patient received a 1 L fluids and abdominal ultrasound shows no acute changes. Discussed getting EGD and colonoscopy for further workup and following up with primary care but also discussed that I would be concerned ab out mood as being portion of her symptoms. Facesheet left with MEDICAL LIAISON for contact with patient. Discharge Plan Departure Patient Disposition: Home Clinical Impression: Decrease in appetite Instructions: DI for Poor Appetite Activity Restrictions/Additional Instructions: Follow-up with your physician for recheck. I would discuss whether there is a mental health component with your symptoms. In the meantime I would also take a PPI daily such as Pepcid 40 mg. You can obtain this [id number]. If you do not have any other clear findings EGD may be helpful for further evaluation as well as colonoscopy. Referrals included below for General surgery. You may call for an appointment to set this up. Please return for fevers, lightheadedness, passing out, worsening weakness, persistent vomiting, chest pain, shortness of breath, black or bloody stools, new abdominal pain or other new or concerning symptoms. Prescriptions: No Action erythromycin 5 mg/gram (0.5 %) ointment See Rx Instructions .ROUTE .COMPLEX Qty: 50 RF: 3 Referrals: Leandro Bennett ARNP [Primary Care Provider] -
--- NOTE | 2020-11-19 21:12 | DI.US.S_ITS ---
PROCEDURE: US ABDOMEN COMPLETE INDICATIONS: NAUSEA AND PAIN TECHNIQUE: Real-time focused scanning was performed of the abdomen, with image documentation. COMPARISON: None. FINDINGS: Liver is normal in size and normal in echotexture. Gallbladder is sonographically normal. No gallstones. No gallbladder wall thickening. Gallbladder wall measures 2.0 millimeters. No pericholecystic fluid. No sonographic Sanderson sign. No intrahepatic biliary tree dilatation. Extrahepatic biliary tree is obscured by bowel gas and cannot be evaluated. Pancreas is sonographically normal. Spleen is normal in size and echotexture. Right kidney measures 8.9 and left kidney measures 10.0 centimeters in long axis. No nephrolithiasis or hydronephrosis. No renal masses identified. Abdominal aorta is normal caliber. Iliac vasculature is normal caliber. Intrahepatic IVC is patent. No free fluid. IMPRESSION: 1. Cause of lower abdominal pain not identified by ultrasound imaging. Consider CT scan of the abdomen pelvis for additional evaluation if clinically indicated. 2. Right renal atrophy. 3. No hydronephrosis or nephrolithiasis. 4. No cholelithiasis or sonographic evidence of cholecystitis. Dictated by: Rosalia Martinez MD, PhD on 11/20/2020 at 8:10 Approved by: Rosalia Martinez MD, PhD on 11/20/2020 at 8:13
[2020-11-19] MEDS: SODIUM CHLORIDE 0.9% 1,000 ML 1000 ML IV (21:22)
[2020-11-19 22:13] LABS: Thyroid Stimulating Hormone 0.625 uIU/mL (0.47-4.68)
--- NOTE | 2020-11-21 16:00 | CM.SWNOTE ---
INFORMATION SYSTEMS TECHNICIAN F/U note INFORMATION SYSTEMS TECHNICIAN receives consult for f/u call with patient. Patient is 25 y/o female who presented to the ED on 11/19/20 with concern for weakness. ED provider Dr. Floyd reports concern for depression and anorexia, when asked patient denies concerns. INFORMATION SYSTEMS TECHNICIAN calls patient and leaves requesting return call. INFORMATION SYSTEMS TECHNICIAN will f/u again this week. MICHAEL Partida
== END 2020-11-19 22:33 | disposition home or self-care (01) ==
PROVIDERS: Emergency Medicine; Emergency Provider Emergency Medicine; PCP Registered Nurse Diabetes Educator
DX: R63.0 Anorexia (principal); R53.1 Weakness; R42 Dizziness and giddiness; R11.0 Nausea; R10.9 Unspecified abdominal pain; Z20.822 Contact with and (suspected) exposure to COVID-19
CPT/HCPCS: 76705; 80053; 81003; 81025; 83690; 84443; 85025; 87635; 93005; 96360; 99284; C9803

== ENCOUNTER → 2021-06-05 17:55 | Outpatient (CLI) | payer OTHER, MEDICAID, SELFPAY ==
[2021-06-05 19:51] LABS: Urine N gonorrhoeae NOT DETECTED
[2021-06-05 20:08] LABS: Urine Chlamydia DETECTED
== END ==
PROVIDERS: PCP Registered Nurse Diabetes Educator; Visit Provider Nurse Practitioner Family
DX: R30.0 Dysuria (principal); N89.8 Other specified noninflammatory disorders of vagina
CPT/HCPCS: 81002; 87086; 87210; 87491; 87591

== ENCOUNTER 2021-06-28 15:32 | Emergency (ER) | payer OTHER, MEDICAID, SELFPAY ==
[2021-06-28 15:40] VITALS: BP 106/67; PULSE 97; RESP 18; TEMP 36.9; O2SAT 100; BMI 21.9
[2021-06-28 16:12] LABS: COVID19 -Nasal RAPID Negative (Negative)
--- NOTE | 2021-06-28 16:57 | ED_ITS ---
HPI - URI/Sore Throat <ESTEPHANIA Blake - Last Filed: 06/28/21 17:41> General Chief Complaint: Upper Respiratory Symptoms Stated Complaint: Pain Swallowing Time Seen by Provider: 06/28/21 16:57 Source: patient Mode of arrival: Ambulatory History of Present Illness HPI Narrative: Female presents to the emergency department with 3 days of sore throat, complains of pain with swallowing, denies any drooling or difficulty swallowing. Denies any runny nose, or cough but does endorse some congestion. She states that she has had chills at night but denies any fever. Primary care provider is Leandro BEST. She denies any nausea vomiting. Patient denies a history of strep throat in the past, states that she does not have any other symptoms but does like her throat is very sore, as if she has strep throat. Related Data Previous Rx's Medication Instructions Recorded benzocaine 15 mg-menthol 2.3 mg 1 cailin PO PRN PRN #16 ea 06/28/21 lozenges (Cepacol Sore Throat (benzocaine-menthol)) fluticasone propionate 50 1 spray INTRANASAL BID PRN #16 g 06/28/21 mcg/actuation nasal spray,suspension (Allergy Relief (fluticasone)) Allergies Allergy/AdvReac Type Severity Reaction Status Date / Time control pill Allergy Severe rash Uncoded 06/05/21 17:35 Review of Systems <ESTEPHANIA Blake - Last Filed: 06/28/21 17:41> Review of Systems Narrative: General: denies fever, chills, malaise, sweats, fatigue Head/Neck: denies headache, neck pain, dizziness, endorses sore throat and swollen tonsils Eyes: denies visual changes, eye pain Cardio: denies chest pain, palpitations, edema Respiratory: denies dyspnea, cough, orthopnea GI: denies abdominal pain, nausea, vomiting, or diarrhea MSK: denies joint pain, muscle weakness Skin: denies rash, itching, skin lesions or other Neuro: denies numbness, tingling Patient History <ESTEPHANIA Blake - Last Filed: 06/28/21 17:41> Medical History Blepharitis Chronic upper back pain Depressed mood Depression Fatigue IBS (irritable bowel syndrome) Liver enzyme elevation Nasal fracture Pelvic pain Trapezius muscle spasm Social History Smoking Status: Never smoker second hand exposure: No alcohol intake: current substance use type: marijuana Smoking Status: Never smoker alcohol intake frequency: a few times a month Substance Use Type: does not use Exam <ESTEPHANIA Blake - Last Filed: 06/28/21 17:41> Narrative Exam Narrative: Independently reviewed vitals signs and nursing notes. General: cooperative, comfortable, in no acute distress, well developed and well groomed Head: atraumatic, symmetrical facial expressions Neck: supple, atraumatic, without lymphadenopathy. Eyes: pupils equal round and reactive, EOMI, conjunctiva normal Nose: nares patent, no rhinorrhea Mouth/Throat: uvula midline, moist mucus membranes, + tonsillar adenopathy without exudate, mild erythema in posterior pharynx Cardiovascular: regular rate and rhythm, no peripheral edema, warm extremities Respiratory: normal effort, able to speak in complete sentences, no audible wheezing, stridor, or rales. No retractions or tachypnea. MSK: moves all extremities, ambulatory w/steady gait, neurovascularly intact, no weakness Skin: brisk capillary refill, no rash, no erythema Neuro: normal speech and cognition, A&O x3, normal tone Psych: mental status is grossly normal, congruent mood, normal affect, pleasant and cooperative Initial Vital Signs Initial Vital Signs: Vital Signs Temperature 98.4 F 06/28/21 15:40 Pulse Rate 97 H 06/28/21 15:40 Respiratory Rate 18 06/28/21 15:40 Blood Pressure 106/67 06/28/21 15:40 Pulse Oximetry 100 06/28/21 15:40 <Alida Sharif MD - Last Filed: 06/29/21 17:46> Initial Vital Signs Initial Vital Signs: Vital Signs Temperature 98.4 F 06/28/21 15:40 Pulse Rate 97 H 06/28/21 15:40 Respiratory Rate 18 06/28/21 15:40 Blood Pressure 106/67 06/28/21 15:40 Pulse Oximetry 100 06/28/21 15:40 Course <ESTEPHANIA Blake - Last Filed: 06/28/21 17:41> Orders Ordered: Discontinued Medications Dexamethasone (Dexamethasone 10 Mg/Ml Vial) 10 mg PO NOW ONE Stop: 06/28/21 17:02 Last Admin: 06/28/21 17:22 Dose: 10 mg Documented by: THUY Ketorolac Tromethamine (Ketorolac 30 Mg/Ml Vial) 15 mg IM NOW ONE Stop: 06/28/21 17:02 Last Admin: 06/28/21 17:22 Dose: 15 mg Documented by: THUY Vital Signs Vital signs: Vital Signs - 8 hr 06/28/21 15:40 Temperature 98.4 F Pulse Rate 97 H Respiratory Rate 18 Blood Pressure 106/67 Pulse Oximetry 100 <Alida Sharif MD - Last Filed: 06/29/21 17:46> Orders Ordered: Discontinued Medications Dexamethasone (Dexamethasone 10 Mg/Ml Vial) 10 mg PO NOW ONE Stop: 06/28/21 17:02 Last Admin: 06/28/21 17:22 Dose: 10 mg Documented by: THUY Ketorolac Tromethamine (Ketorolac 30 Mg/Ml Vial) 15 mg IM NOW ONE Stop: 06/28/21 17:02 Last Admin: 06/28/21 17:22 Dose: 15 mg Documented by: THUY Vital Signs Vital signs: Vital Signs - 8 hr 06/28/21 15:40 Temperature 98.4 F Pulse Rate 97 H Respiratory Rate 18 Blood Pressure 106/67 Pulse Oximetry 100 MDM - URI/Sore Throat <ESTEPHANIA Blake - Last Filed: 06/28/21 17:41> Lab Data Labs: Lab Results 06/28/21 Range/Units 15:48 SARS-CoV-2 (PCR) Negative (Negative) Point of Care Testing Rapid Strep A Negative MDM Narrative Medical decision making narrative: This is a 26-year-old female presents to the emergency department for sore throat for the last 3 days with chills. She denies any cough, nausea, vomiting, or abdominal pain. Strep a test was negative, throat culture pending, COVID test is negative. This is most likely viral pharyngitis, throat culture obtained, will follow-up on results. Patient was given prescription of fluticasone and septic cool throat lozenges for her symptoms. Today she was given Toradol in the emergency department and dexamethasone. She was encouraged to stay hydrated with clear liquids, do salt water rinses of her throat, start taking ibuprofen tomorrow or Tylenol today for her symptoms. She has been afebrile, having chills at home but no measured fever. No nausea vomiting. Patient understands to follow-up with her primary care provider if she is not getting any better, return to the emergency department for new or worsening symptoms. Patient is appropriate and amenable to discharge home. Vital signs are stable on repeat examination is unremarkable. Patient has been informed of results. Patient has been given strict return to ER precautions for any new or worsening symptoms. Patient understands to follow up closely with outpatient providers as instructed. Patient understands plan and agrees to discharge home. All questions and concerns answered at this time. <Alida Sharif MD - Last Filed: 06/29/21 17:46> Lab Data Labs: Lab Results 06/28/21 Range/Units 15:48 SARS-CoV-2 (PCR) Negative (Negative) Point of Care Testing Rapid Strep A Negative Discharge Plan Departure Patient Disposition: Home Clinical Impression: Pharyngitis Qualifiers: Pharyngitis/tonsillitis etiology: unspecified etiology Qualified Code(s): J02.9 - Acute pharyngitis, unspecified Instructions: DI for Viral Pharyngitis Activity Restrictions/Additional Instructions: *You have been diagnosed with a sore throat, this may be bacterial, but the strep a test was negative. We will call you if your throat culture is positive for bacteria. If it is not, then this is a viral illness that should get better in 4-5 days. Please use the Flonase morning and night, take ibuprofen starting tomorrow every 6-8 hours as needed for sore throat and pain, please eat food and drink water with this medication, you can use Tylenol as well. I called in some throat lozenges for you. Please follow-up with Leandro Bennett if this is getting any worse or if you receive a phone call that your throat culture is positive for bacteria. I hope you feel better soon. Remember to stay hydrated. *What to do: *Please continue to take your regular medications as directed. [ x] New medication prescriptions sent to your pharmacy: [[facility] ] [ ] New medication written as a paper prescription [ ] No new medications given *Please follow up with your primary care provider in 2-3 days, call for an appointment. Let them know you were seen in the Emergency Department and that we asked that you be seen for follow-up. We will electronically transmit a record of today's note if your PCP is in our system *If you do not have a primary care provider please contact [phone] to establish care with one of the [facility] primary care providers. *Return to Emergency Department if you should have any new, worsening or concerning symptoms, such as [fever greater than 101F, chills, worsening pain, persistent vomiting or other bothersome symptoms] Prescriptions: New fluticasone propionate [Allergy Relief (fluticasone)] 50 mcg/actuation spray,suspension 1 spray intranasal BID PRN (Reason: nasal congestion) Qty: 16 0RF Rx Instructions: administer into each nostril Cepacol Sore Throat (howard-men) 15-2.3 mg lozenge 1 cailin PO PRN PRN (Reason: sore throat) Qty: 16 0RF Referrals: Leandro Bennett ARNP [Primary Care Provider] - <Alida Sharif MD - Last Filed: 06/29/21 17:46> Cosign ED Attending Cosignature Attestation: I was immediately available in the department for consultation throughout this patient's visit. I agree with documentation as above. Alida Sharif MD
[2021-06-28] MEDS: KETOROLAC 30 MG/ML VIAL 15 MG IM (17:22)
[2021-06-28] MEDS: DEXAMETHASONE 10 MG/ML VIAL PO (17:22)
[2021-06-28 17:43] VITALS: BP 129/72; PULSE 98; RESP 15; O2SAT 99
== END 2021-06-28 17:45 | disposition home or self-care (01) ==
PROVIDERS: Emergency Medicine; Emergency Provider Nurse Practitioner Critical Care Medicine; PCP Registered Nurse Diabetes Educator
DX: J02.9 Acute pharyngitis, unspecified (principal); R68.83 Chills (without fever); Z20.822 Contact with and (suspected) exposure to COVID-19
CPT/HCPCS: 87070; 87635; 87880; 96372; 99283; C9803; J1100; J1885

== ENCOUNTER 2021-07-04 09:16 | Emergency (ER) | payer OTHER, MEDICAID, SELFPAY ==
[2021-07-04 09:24] VITALS: BP 110/73; PULSE 80; RESP 14; TEMP 36.4; O2SAT 98; BMI 22.4
--- NOTE | 2021-07-04 13:22 | ED.URI ---
HPI - URI/Sore Throat General Chief Complaint: Upper Respiratory Symptoms Stated Complaint: stated swollen tonsils here two days ago Source: patient Mode of arrival: Ambulatory Related Data Previous Rx's Medication Instructions Recorded benzocaine 15 mg-menthol 2.3 mg 1 cailin PO PRN PRN #16 ea 06/28/21 lozenges (Cepacol Sore Throat (benzocaine-menthol)) fluticasone propionate 50 1 spray INTRANASAL BID PRN #16 g 06/28/21 mcg/actuation nasal spray,suspension (Allergy Relief (fluticasone)) Allergies Allergy/AdvReac Type Severity Reaction Status Date / Time No Known Drug Allergies Allergy Verified 07/04/21 09:24 Patient History Medical History Blepharitis Chronic upper back pain Depressed mood Depression Fatigue IBS (irritable bowel syndrome) Liver enzyme elevation Nasal fracture Pelvic pain Trapezius muscle spasm Social History Smoking Status: Never smoker second hand exposure: No alcohol intake: current substance use type: marijuana Smoking Status: Never smoker alcohol intake frequency: holidays/special occasions only Substance Use Type: does not use Exam Initial Vital Signs Initial Vital Signs: Vital Signs Temperature 97.6 F 07/04/21 09:24 Pulse Rate 80 07/04/21 09:24 Respiratory Rate 14 07/04/21 09:24 Blood Pressure 110/73 07/04/21 09:24 Pulse Oximetry 98 07/04/21 09:24 Course Vital Signs Vital signs: Vital Signs - 8 hr 07/04/21 09:24 Temperature 97.6 F Pulse Rate 80 Respiratory Rate 14 Blood Pressure 110/73 Pulse Oximetry 98 Discharge Plan Departure Patient Disposition: Left Without Being Seen Clinical Impression: Patient left without being seen
== END 2021-07-04 13:18 | disposition left against medical advice (07) ==
PROVIDERS: Emergency Provider Emergency Medicine; PCP Registered Nurse Diabetes Educator
DX: J35.1 Hypertrophy of tonsils (principal)
CPT/HCPCS: 99281

== ENCOUNTER → 2021-07-05 09:57 | Outpatient (CLI) | payer OTHER, MEDICAID, SELFPAY | PROVIDERS: PCP Registered Nurse Diabetes Educator; Visit Provider Nurse Practitioner Family | DX: J02.9 Acute pharyngitis, unspecified (principal) | CPT/HCPCS: 87070; 87077; 87147 ==

== ENCOUNTER 2021-07-05 20:41 | Emergency (ER) | payer OTHER, MEDICAID, SELFPAY ==
[2021-07-05 21:22] VITALS: BP 109/67; PULSE 88; RESP 18; TEMP 37.4; O2SAT 99; BMI 21.9
[2021-07-05 23:36] LABS: Monotest Negative (Negative)
--- NOTE | 2021-07-06 01:19 | ED_ITS ---
HPI - General Adult General Chief complaint: Upper Respiratory Symptoms Stated complaint: Sore throat Time Seen by Provider: 07/05/21 21:52 Source: patient Mode of arrival: Ambulatory History of Present Illness HPI narrative: Patient is a 26-year-old female here for evaluation of a right-sided sore throat. She was seen here recently for similar symptoms. Had a negative strep test. Subsequently negative throat culture. Received steroids and anti- inflammatories here in the ER. She states that for about 24 hours afterwards her symptoms did improve however they have since returned and now she is just having pain on the right side of her throat. It does hurt for her to swallow. No problems breathing. Related Data Previous Rx's Medication Instructions Recorded fluticasone propionate 50 1 spray INTRANASAL BID PRN #16 g 06/28/21 mcg/actuation nasal spray,suspension (Allergy Relief (fluticasone)) Allergies Allergy/AdvReac Type Severity Reaction Status Date / Time No Known Drug Allergies Allergy Verified 07/04/21 09:24 Review of Systems Constitutional Constitutional: Denies fever(s) ENT Ears, Nose, Mouth, and Throat: Reports system reviewed and no additional complaints, except as documented and Reports as per HPI Respiratory Respiratory: Reports as per HPI and Reports system reviewed and no additional complaints, except as documented Integumentary/Breasts Skin/Breast: Denies rash Hematologic/Lymphatic On Anticoagulants: No Patient History Medical History Blepharitis Chronic upper back pain Depressed mood Depression Fatigue IBS (irritable bowel syndrome) Liver enzyme elevation Nasal fracture Pelvic pain Trapezius muscle spasm Social History Smoking Status: Former smoker second hand exposure: No alcohol intake: current substance use type: marijuana Smoking Status: Former smoker alcohol intake frequency: holidays/special occasions only Substance Use Type: does not use Exam Initial Vital Signs Initial Vital Signs: Vital Signs Temperature 99.4 F 07/05/21 21:22 Pulse Rate 88 07/05/21 21:22 Respiratory Rate 18 07/05/21 21:22 Blood Pressure 109/67 07/05/21 21:22 Pulse Oximetry 99 07/05/21 21:22 Const General: cooperative, healthy appearing, comfortable and well developed HENMT Ears: TM's normal bilaterally Mouth: oral mucosae normal Throat: abnormal tonsil on the right hypertrophy Neck Lymphatic: lymphadenopathy (Right-sided submandibular) Resp Effort & Inspection: normal respiratory effort Skin General: no rashes or lesions noted Neuro General: patient alert, patient awake and moves all extremities Extrem General: normal to inspection and capillary refill normal Course Orders Ordered: ED Orders 07/05/21 23:15 Monotest Stat 07/06/21 01:30 Throat Culture Stat Discontinued Medications Dexamethasone (Dexamethasone 4 Mg Tablet) 12 mg PO NOW ONE Stop: 07/06/21 01:20 Last Admin: 07/06/21 01:27 Dose: 12 mg Documented by: NELLY Ketorolac Tromethamine (Ketorolac 30 Mg/Ml Vial) 30 mg IM NOW ONE Stop: 07/06/21 01:20 Last Admin: 07/06/21 01:27 Dose: 30 mg Documented by: NELLY Vital Signs Vital signs: Vital Signs - 8 hr 07/05/21 21:22 07/06/21 01:38 Temperature 99.4 F Pulse Rate 88 71 Respiratory Rate 18 18 Blood Pressure 109/67 Pulse Oximetry 99 100 Medical Decision Making Medical Records Medical records reviewed: Yes I reviewed the patient's medical records. Lab Data Lab results reviewed: Yes I reviewed the patient's lab results. Labs: Lab Results 07/05/21 Range/Units 23:15 Monoscreen Negative (Negative) MDM Narrative Medical decision making narrative: Patient has a negative mono test. Does have hypertrophy of the right tonsil on right-sided lymphadenopathy be however uvula is midline. Low suspicion for peritonsillar abscess. Low suspicion for retropharyngeal abscess based on her p resentation. A 2nd throat culture was obtained today that we will contact her if we need to start any antibiotics. She was given another dose of steroids and Toradol. Patient be safely discharged home. She was given return precautions. She expressed understanding and agreement. Discharge Plan Departure Patient Disposition: Home Clinical Impression: Pharyngitis Instructions: Sore Throat Activity Restrictions/Additional Instructions: We did repeat a throat culture today and we will contact you if we need to start any antibiotics. You should start to feel some improvement from the medications you received here the emergency department. I do recommend you increase your fluid intake. You can continue to take Tylenol/ibuprofen at home. Return to the emergency department for any new or worsening symptoms. Prescriptions: No Action fluticasone propionate [Allergy Relief (fluticasone)] 50 mcg/actuation spray,suspension 1 spray intranasal BID PRN (Reason: nasal congestion) Qty: 16 0RF Rx Instructions: administer into each nostril Referrals: Leandro Bennett ARNP [Primary Care Provider] -
[2021-07-06] MEDS: dexAMETHasone 4 MG TABLET 12 MG PO (01:27)
[2021-07-06] MEDS: KETOROLAC 30 MG/ML VIAL IM (01:27)
[2021-07-06 01:38] VITALS: PULSE 71; RESP 18; O2SAT 100
== END 2021-07-06 01:39 | disposition home or self-care (01) ==
PROVIDERS: Emergency Provider Emergency Medicine; PCP Registered Nurse Diabetes Educator
DX: J02.9 Acute pharyngitis, unspecified (principal); R59.0 Localized enlarged lymph nodes; Z87.891 Personal history of nicotine dependence
CPT/HCPCS: 36415; 86318; 87070; 87077; 87147; 87880; 96372; 99283; J1885

== ENCOUNTER → 2021-07-23 10:44 | Outpatient (CLI) | payer OTHER, MEDICAID, SELFPAY ==
[2021-07-23 13:18] LABS: Urine N gonorrhoeae NOT DETECTED
[2021-07-23 13:42] LABS: Urine Chlamydia NOT DETECTED
[2021-07-24 04:42] LABS: Hepatitis B Core AB w/Reflex Negative (Negative)
[2021-07-24 08:08] LABS: HSV 2 IGG AB < 0.91 index (0.00-0.90); HSV1IGG < 0.91 index (0.00-0.90); RPR Screen Non Reactive (Non Reactive)
[2021-07-24 20:35] LABS: HSV I/II IgM 1.18 Ratio (0.00-0.90)
[2021-07-25 16:09] LABS: HIV 1 & 2 Ab/Ag 4th Gen Combo NEGATIVE (NEGATIVE); Hep C Virus Ab w/Reflex Quant NEGATIVE s/c (NEGATIVE)
[2021-07-25 17:30] LABS: Hepatitis B Surface Antigen NEGATIVE s/c (NEGATIVE)
== END ==
PROVIDERS: PCP Registered Nurse Diabetes Educator; Referring Provider Registered Nurse Diabetes Educator; Visit Provider Registered Nurse Diabetes Educator
DX: Z72.51 High risk heterosexual behavior (principal); Z74.9 Problem related to care provider dependency, unspecified
CPT/HCPCS: 36415; 86592; 86694; 86695; 86696; 86704; 86803; 87340; 87389; 87491; 87591

== ENCOUNTER → 2021-08-29 13:35 | Outpatient (CLI) | payer OTHER, MEDICAID, SELFPAY | PROVIDERS: PCP Registered Nurse Diabetes Educator; Referring Provider Registered Nurse Diabetes Educator; Visit Provider Registered Nurse Diabetes Educator | DX: Z72.51 High risk heterosexual behavior (principal) | CPT/HCPCS: 36415; 86694 ==

== ENCOUNTER → 2021-09-11 16:29 | Outpatient (CLI) | payer OTHER, MEDICAID, SELFPAY ==
[2021-09-12 06:39] LABS: HSV Type 1 AB, IgG <0.91 index (0.00-0.90)
== END ==
PROVIDERS: PCP Registered Nurse Diabetes Educator; Referring Provider Registered Nurse Diabetes Educator; Visit Provider Registered Nurse Diabetes Educator
DX: B00.9 Herpesviral infection, unspecified (principal)
CPT/HCPCS: 36415; 86695; 86696

== ENCOUNTER → 2022-03-27 11:01 | Outpatient (CLI) | payer OTHER, MEDICAID, SELFPAY ==
--- NOTE | 2022-03-27 11:02 | DI.US.S_ITS ---
PROCEDURE: US PELVIC COMPLETE INDICATIONS: EVALUATE DYSMENNORHEA TECHNIQUE: Real-time scanning was performed of the pelvic organs, with image documentation. Additional endovaginal scanning was necessary due to incomplete visualization of the adnexal and endometrial structures by transabdominal scanning. COMPARISON: [facility], US, US PELVIC COMPLETE, 11/03/2019, 8:21. FINDINGS: Uterus: Uterus is retroverted and normal in size at 6.4 x 2.7 x 5.1 cm. The myometrium is homogeneous. The endometrium measures 7.6 mm combined thickness. Cervix is normal. Ovaries: The right ovary measures 1.8 x 1.3 x 1.7 cm, with a calculated ovarian volume of 2.01 cc. The left ovary measures 2.9 x 2.0 x 2.7 cm, with a calculated ovarian volume of 8.14 cc. The ovaries have a normal sonographic appearance. Less than 12 follicles can be seen in each ovary. No adnexal masses are seen. Other: No pathologic free abdominal or pelvic fluid. IMPRESSION: Normal pelvic ultrasound exam. We strive to produce accurate, complete, and clear reports of imaging services. To assist us in improving patient care, this report was composed using standard report templates and voice recognition software. Therefore, it may contain abnormal punctuation, insertions and/or omissions. Occasional wrong-word or sound-alike substitutions may occur. Though we review the report and make efforts to correct it, we do recommend that the report be read carefully in proper context to recognize any text inaccuracies. Dictated by: Diego Barajas M.D. on 03/28/2022 at 12:03 Approved by: Diego Barajas M.D. on 03/28/2022 at 12:06
== END ==
PROVIDERS: PCP Registered Nurse Diabetes Educator; Referring Provider Registered Nurse Diabetes Educator; Visit Provider Registered Nurse Diabetes Educator
DX: N94.6 Dysmenorrhea, unspecified
CPT/HCPCS: 76856; 93975

== ENCOUNTER 2022-04-02 19:55 | Emergency (ER) | payer OTHER, MEDICAID, SELFPAY ==
[2022-04-02 20:02] VITALS: BP 111/56; PULSE 60; RESP 18; TEMP 36.7; O2SAT 97; BMI 21.4
--- NOTE | 2022-04-02 22:01 | ED_ITS ---
HPI - General Adult General Chief complaint: Abdominal Pain Stated complaint: weakness, unable to eat Time Seen by Provider: 04/02/22 21:52 Source: patient Mode of arrival: Ambulatory History of Present Illness HPI narrative: Patient comes here from home. Has had decreased appetite for the past 3 weeks. No abdominal pain. No urinary complaints. Just finished her period. Patient has been dealing with poor appetite for the past year and a half. Was seen here November 2020 for the same complaint. Patient did receive IV fluids and felt better after that visit. Patient does see primary Care and is getting referred to gastroenterology. Just had pelvic ultrasound done in the past week. No fever chills no cough cold or congestion. Denies . Patient states she is not trying to lose weight or trying to deny herself from eating. Just has no appetite. Related Data Previous Rx's Medication Instructions Recorded dicyclomine 20 mg tablet 20 mg PO QID PRN abdominal pain 03/03/22 #30 tabs erythromycin 5 mg/gram (0.5 %) eye See Rx Instructions .Route 03/03/22 ointment .COMPLEX #50 grams metoclopramide HCl 10 mg tablet 10 mg PO Q6H PRN nausea and 04/03/22 (Reglan) vomiting #20 tabs Allergies Allergy/AdvReac Type Severity Reaction Status Date / Time No Known Drug Allergies Allergy Verified 04/02/22 20:18 Review of Systems Review of Systems Narrative: GENERAL: negative chills, fatigue, malaise, fever, sweats. HEENT: negative sinus pain, ear pain, sore throat RESPIRATORY: negative dyspnea, cough CARDIOVASCULAR: negative chest pain, palpitations GASTROINTESTINAL: negative nausea, vomiting, abdominal pain : negative dysuria, frequency, hematuria MUSCULOSKELETAL: negative muscle or bony pain SKIN: negative rash, skin lesions NEUROLOGIC: negative weakness, numbness ROS Unobtainable: All systems reviewed & are unremarkable except as noted in HPI and below Patient History Medical History Blepharitis Chronic upper back pain Depressed mood Depression Fatigue IBS (irritable bowel syndrome) Liver enzyme elevation Nasal fracture Pelvic pain Trapezius muscle spasm Social History Smoking Status: Current some day smoker second hand exposure: No alcohol intake: current substance use type: marijuana Smoking Status: Current some day smoker alcohol intake frequency: holidays/special occasions only Substance Use Type: marijuana Exam Narrative Exam Narrative: GENERAL: in no distress, not toxic not dyspneic HEAD: Normocephalic. EYES: Pupils equal round No scleral icterus. ENT: Mucous membranes moist. NECK: Trachea midline. No thyromegaly CARDIOVASCULAR: Regular rate and rhythm without murmurs RESPIRATORY: Clear to auscultation. Breath sounds equal bilaterally. No wheezes, rales, or rhonchi. GASTROINTESTINAL: Abdomen soft, non-tender EXTREMITIES: No gross deformities. BACK: No flank tenderness. NEURO: AOx4. SKIN: Warm and dry PSYCH: Not anxious, is cooperative Initial Vital Signs Initial Vital Signs: Vital Signs Temperature 98.1 F 04/02/22 20:02 Pulse Rate 60 04/02/22 20:02 Respiratory Rate 18 04/02/22 20:02 Blood Pressure 111/56 L 04/02/22 20:02 Pulse Oximetry 97 04/02/22 20:02 Oxygen Delivery Method 04/02/22 20:02 Course Orders Ordered: ED Orders 04/02/22 22:10 Urine Microscopic Stat 04/02/22 22:17 Complete Blood Count AUTO DIFF Stat Comprehensive Metabolic Panel Stat Lipase Stat TSH [Thyroid Stimulating Hormone] Stat Discontinued Medications Sodium Chloride (Normal Saline 0.9%) 1,000 mls @ 1,000 mls/hr IV BOLUS ONE Stop: 04/02/22 23:00 Last Infusion: 04/02/22 23:15 Dose: 0 mls/hr Documented By: Admin: 04/02/22 22:10 Dose: 1,000 mls/hr Documented By: ZOEY Metoclopramide HCl (Metoclopramide 10 Mg/2 Ml Inj) 10 mg IV NOW ONE Stop: 04/02/22 22:02 Last Admin: 04/02/22 22:10 Dose: 10 mg Documented By: ZOEY Ondansetron HCl (Ondansetron 4 Mg/2 Ml Inj) 4 mg IV NOW PRN PRN Reason: Nausea And Vomiting Vital Signs Vital signs: Vital Signs - 8 hr 04/02/22 20:02 Temperature 98.1 F Pulse Rate 60 Respiratory Rate 18 Blood Pressure 111/56 L Pulse Oximetry 97 Oxygen Delivery Method Room Air Medical Decision Making Medical Records Medical records narrative: [address] [address] Ultrasound Report Signed Patient: Raisa Crawford V MR#: [id number] : 1995 Acct:[id number] Age/Sex: 27 / F Date of Service: 03/27/22 Loc: Accession Number: [id number] ?? Procedure: US pelvic complete Ordering Provider: Leandro Bennett PROCEDURE:? US PELVIC COMPLETE ? INDICATIONS:? EVALUATE DYSMENNORHEA ? TECHNIQUE:? Real-time scanning was performed of the pelvic organs, with image documentation.? Additional endovaginal scanning was necessary due to incomplete visualization of the adnexal and endometrial structures by transabdominal scanning.? ? COMPARISON:[facility], PELVIC COMPLETE, 11/03/2019, 8:21. ? FINDINGS:? ?? Uterus:? Uterus is retroverted and normal in size at 6.4 x 2.7 x 5.1 cm. The myometrium is homogeneous. ? The endometrium measures 7.6 mm combined thickness.? Cervix is normal. ? Ovaries:? The right ovary measures 1.8 x 1.3 x 1.7 cm, with a calculated ovarian volume of 2.01 cc. The left ovary measures 2.9 x 2.0 x 2.7 cm, with a calculated ovarian volume of 8.14 cc. The ovaries have a normal sonographic appearance. Less than 12 follicles can be seen in each ovary.? No adnexal masses are seen. ? Other:? No pathologic free abdominal or pelvic fluid. ? ? IMPRESSION:? Normal pelvic ultrasound exam. ? ? We strive to produce accurate, complete, and clear reports of imaging services. To assist us in improving patient care, this report was composed using standard report templates and voice recognition software. Therefore, it may contain abnormal punctuation, insertions and/or omissions. Occasional wrong-word or sound-alike substitutions may occur. Though we review the report and make efforts to correct it, we do recomme nd that the report be read carefully in proper context to recognize any text inaccuracies. ? ? Dictated by: Diego Barajas M.D. on 03/28/2022 at 12:03 ? ? Approved by: Diego Barajas M.D. on 03/28/2022 at 12:06 ? Lab Data Result diagrams: 04/02/22 22:17 04/02/22 22:17 Labs: Lab Results 04/02/22 04/02/22 04/02/22 Range/Units 22:10 22:17 22:17 WBC 6.3 (4.5-11.0) X10^3/uL RBC 4.31 (4.0-5.2) X10^6/uL Hgb 12.9 (12.0-16.0) g/dL Hct 38.4 (36-46) % MCV 89.0 (80-100) fL MCH 29.9 (26-34) PG MCHC 33.6 (30-36) % RDW 12.5 (11.6-14.8) % Plt Count 268 (150-400) X10^3/uL Neut % (Auto) 41.8 L (50-75) % Lymph % (Auto) 48.0 H (25-40) % Surry % (Auto) 7.2 (3-14) % Eos % (Auto) 2.7 (2-4) % Baso % (Auto) 0.3 (0-2) % Neut # (Auto) 2600 (7021-0771) /uL Lymph # (Auto) 3000 (0390-4404) /uL Surry # (Auto) 500 (0-900) /uL Eos # (Auto) 200 (0-450) /uL Baso # (Auto) 0 (0-100) /uL Sodium 141 (137-145) mmol/L Potassium 3.4 (3.4-5.1) mmol/L Chloride 100 (98-107) mmol/L Carbon Dioxide 28 (22-32) mmol/L BUN 16 (7-17) mg/dL Creatinine 0.56 (0.52-1.04) mg/dL Estimated GFR > 60 (>60) mL/min BUN/Creatinine Ratio 28.6 H (6-22) Glucose 100 (70-100) mg/dL Calcium 9.2 (8.4-10.2) mg/dL Total Bilirubin 0.6 (0.2-1.3) mg/dL AST 22 (14-36) IU/L ALT 15 (<35) IU/L Alkaline Phosphatase 88 (38-126) U/L Total Protein 8.5 H (6.3-8.2) g/dL Lipase 67 (23-300) U/L TSH (0.47-4.68) uIU/mL Urine RBC 0-1/hpf (0-5/HPF) Urine WBC None seen (0-5/HPF) Ur Squamous Epith Cells 1-5 /hpf (0-5/HPF) Urine Bacteria None seen (None) Urine Mucus 2+ H (Negative) Ur Culture Indicated? Cult not indicated 04/02/22 Range/Units 22:17 WBC (4.5-11.0) X10^3/uL RBC (4.0-5.2) X10^6/uL Hgb (12.0-16.0) g/dL Hct (36-46) % MCV (80-100) fL MCH (26-34) PG MCHC (30-36) % RDW (11.6-14.8) % Plt Count (150-400) X10^3/uL Neut % (Auto) (50-75) % Lymph % (Auto) (25-40) % Surry % (Auto) (3-14) % Eos % (Auto) (2-4) % Baso % (Auto) (0-2) % Neut # (Auto) (9353-5866) /uL Lymph # (Auto) (8327-3403) /uL Surry # (Auto) (0-900) /uL Eos # (Auto) (0-450) /uL Baso # (Auto) (0-100) /uL Sodium (137-145) mmol/L Potassium (3.4-5.1) mmol/L Chloride (98-107) mmol/L Carbon Dioxide (22-32) mmol/L BUN (7-17) mg/dL Creatinine (0.52-1.04) mg/dL Estimated GFR (>60) mL/min BUN/Creatinine Ratio (6-22) Glucose (70-100) mg/dL Calcium (8.4-10.2) mg/dL Total Bilirubin (0.2-1.3) mg/dL AST (14-36) IU/L ALT (<35) IU/L Alkaline Phosphatase (38-126) U/L Total Protein (6.3-8.2) g/dL Lipase (23-300) U/L TSH 1.35 (0.47-4.68) uIU/mL Urine RBC (0-5/HPF) Urine WBC (0-5/HPF) Ur Squamous Epith Cells (0-5/HPF) Urine Bacteria (None) Urine Mucus (Negative) Ur Culture Indicated? Point of Care Testing Test Results Negative Urine Dip Bedside Urine Glucose Negative Bedside Urine Bilirubin - Negative Bedside Urine Ketone - Negative Urine Specific Dorrance 1.030 Bedside Urine Occult Blood - Negative Bedside Urine pH 6.0 Bedside Urine Protein +/- 15 Bedside Urine Urobilinogen - Negative Bedside Urine Nitrite - Negative Bedside Urine Leukocytes - Negative Esterase Point of care testing: Point of Care Testing Test Results Negative Urine Dip Bedside Urine Glucose Negative Bedside Urine Bilirubin - Negative Bedside Urine Ketone - Negative Urine Specific Dorrance 1.030 Bedside Urine Occult Blood - Negative Bedside Urine pH 6.0 Bedside Urine Protein +/- 15 Bedside Urine Urobilinogen - Negative Bedside Urine Nitrite - Negative Bedside Urine Leukocytes - Negative Esterase MDM Narrative Medical decision making narrative: Patient comes here from home. Has had decreased appetite for the past 3 weeks. No abdominal pain. No urinary complaints. Just finished her period. Patient has been dealing with poor appetite for the past year and a half. Was seen here November 2020 for the same complaint. Patient did receive IV fluids and felt better after that visit. Patient does see primary Care and is getting referred to gastroenterology. Just had pelvic ultrasound done in the past week. No fever chills no cough cold or congestion. Denies . Patient states she is not trying to lose weight or trying to deny herself from eating. Just has no appetite. After exam and history and evaluation. CBC CMP urinalysis urine preg test TSH lab tests have been ordered. Normal saline ordered as well. Reglan ordered as well. At this time no imaging indicated. No abdominal pain. Patient had pelvic ultrasound in the past week. MDM CC: Complicating co-morbidities: Data collected from: Medical records reviewed: Reviewed records from November 2020 as well as ultrasound of the pelvis just recently done Differential considered: Includes but not limited to Exam documented above, pertinent findings include: Lab Test results independently reviewed as above. Pertinent findings: CBC reassuring no leukocytosis. Hemoglobin stable at 12.9. CMP no acute renal injury, normal BUN and creatinine. Treatments: Normal saline IV fluid with Reglan Re-evaluations: 12:19 a.m.. Patient feeling much better after IV fluids and Reglan. She does agree with treatment prescription for Reglan. Discussion: Appropriate for discharge home. I did review with patient treatment plan and she does have primary care referral for GI specialist. She does agree with prescription for Reglan. Return precautions reviewed with her. Not toxic at discharge. No imaging indicated this time. Laboratory studies are reassuring. Diagnosis: Poor appetite Disposition: see below, along with detailed discharge instructions that have been reviewed with patient as well as indications for ED re-evaluation and additional outpatient follow up Discharge Plan Departure Patient Disposition: Home Clinical Impression: Poor appetite Instructions: DI for Poor Appetite Activity Restrictions/Additional Instructions: See your family doctor as scheduled for referral for Gastroenterology. Prescription for Reglan has been sent to your pharmacy. Be sure to pick this up as this may help for your appetite. Keep well hydrated. Return if worse if any questions or concerns Prescriptions: New metoclopramide HCl [Reglan] 10 mg tablet 10 mg PO Q6H PRN (Reason: nausea and vomiting) Qty: 20 0RF No Action erythromycin 5 mg/gram (0.5 %) ointment See Rx Instructions .ROUTE .COMPLEX Qty: 50 3RF Rx Instructions: Apply ointment directly onto the lid margins once daily at bedtime. Stop once symptoms improve (generally one to two weeks) dicyclomine 20 mg tablet 20 mg PO QID PRN (Reason: abdominal pain) Qty: 30 3RF Referrals: Leandro Bennett ARNP [Primary Care Provider] - Stand Alone Forms: Patient Portal/API
[2022-04-02] MEDS: METOCLOPRAMIDE 10 MG/2 ML INJ IV (22:10)
[2022-04-02] MEDS: SODIUM CHLORIDE 0.9% 1,000 ML 1000 ML IV (22:10)
[2022-04-02 22:27] LABS: Add Manual Diff / Slide Review NO; Basophils Absolute Auto 0 /uL (0-100); Basophils Percent Auto 0.3 % (0-2); Eosinophils Absolute Auto 200 /uL (0-450); Eosinophils Percent Auto 2.7 % (2-4); Hematocrit 38.4 % (36-46); Hemoglobin 12.9 g/dL (12.0-16.0); Lymphocytes Absolute Auto 3000 /uL (1100-4500); Mean Corpuscular HGB Conc 33.6 % (30-36); Mean Corpuscular Hemoglobin 29.9 PG (26-34); Monocytes Absolute Auto 500 /uL (0-900); Monocytes Percent Auto 7.2 % (3-14); Neutrophils Absolute Auto 2600 /uL (1500-7000); Neutrophils Percent Auto 41.8 % (50-75); Platelet Count 268 X10^3/uL (150-400); Red Blood Cell Count 4.31 X10^6/uL (4.0-5.2); Red Cell Distribution Width 12.5 % (11.6-14.8); White Blood Cell Count 6.3 X10^3/uL (4.5-11.0)
[2022-04-02 22:36] LABS: Alanine Aminotransferase 15 IU/L (<35); Alkaline Phosphatase 88 U/L (38-126); Aspartate Aminotransferase 22 IU/L (14-36); BUN Creatinine Ratio 28.6 (6-22); Bilirubin Total 0.6 mg/dL (0.2-1.3); Blood Urea Nitrogen 16 mg/dL (7-17); Calcium 9.2 mg/dL (8.4-10.2); Carbon Dioxide 28 mmol/L (22-32); Chloride 100 mmol/L (98-107); Estimated Glomerular Filt Rate > 60 mL/min (>60); Glucose 100 mg/dL (70-100); HEMOLYSIS < 15 (0-50); Lipase 67 U/L (23-300); Potassium 3.4 mmol/L (3.4-5.1); Sodium 141 mmol/L (137-145); Total Protein 8.5 g/dL (6.3-8.2)
[2022-04-02 22:52] LABS: RBC Urine 0-1/HPF (0-5/HPF); Squamous Epithelial Cell Urine 1-5 /HPF (0-5/HPF); WBC Urine None Seen (0-5/HPF)
[2022-04-02 22:53] LABS: Bacteria Urine None Seen; Culture Indicated Urine Cult Not Indicated; Mucus Urine 2+ (Negative)
[2022-04-02 23:28] LABS: Thyroid Stimulating Hormone 1.35 uIU/mL (0.47-4.68)
[2022-04-04 16:23] LABS: Albumin 4.7 g/dL (3.5-5.0); Albumin Globulin Ratio 1.2 (1.0-2.8); Globulin 3.8 g/dL (1.7-4.1)
== END 2022-04-03 00:34 | disposition home or self-care (01) ==
PROVIDERS: Emergency Provider Emergency Medicine; PCP Registered Nurse Diabetes Educator
DX: R63.0 Anorexia (principal); Z68.21 Body mass index [BMI] 21.0-21.9, adult
CPT/HCPCS: 36415; 80053; 81003; 81015; 81025; 83690; 84443; 85025; 96361; 96374; 99284; J2765

== ENCOUNTER → 2022-11-26 14:25 | Outpatient (CLI) | payer OTHER, MEDICAID, SELFPAY ==
[2022-11-26 23:12] LABS: Urine N gonorrhoeae NOT DETECTED
[2022-11-26 23:19] LABS: Urine Chlamydia NOT DETECTED
[2022-11-27 16:23] LABS: Hepatitis B Surface Antigen NEGATIVE s/c (NEGATIVE)
[2022-11-27 16:34] LABS: HIV 1 & 2 Ab/Ag 4th Gen Combo NEGATIVE (NEGATIVE); Hep C Virus Ab w/Reflex Quant NEGATIVE s/c (NEGATIVE)
[2022-11-28 05:12] LABS: RPR Screen Non Reactive (Non Reactive)
== END ==
PROVIDERS: PCP Registered Nurse Diabetes Educator; Referring Provider Registered Nurse Diabetes Educator; Visit Provider Registered Nurse Diabetes Educator
DX: Z72.51 High risk heterosexual behavior (principal)
CPT/HCPCS: 36415; 86592; 86695; 86696; 86803; 87340; 87389; 87491; 87591

== ENCOUNTER → 2023-03-20 07:49 | Outpatient (CLI) | payer OTHER, MEDICAID, SELFPAY ==
[2023-03-20 10:14] LABS: Urine N gonorrhoeae NOT DETECTED
[2023-03-20 10:23] LABS: Urine Chlamydia NOT DETECTED
== END ==
PROVIDERS: PCP Registered Nurse Diabetes Educator; Referring Provider Registered Nurse Diabetes Educator; Visit Provider Registered Nurse Diabetes Educator
DX: Z00.00 Encounter for general adult medical examination without abnormal findings (principal); R30.0 Dysuria
CPT/HCPCS: 87491; 87591

== ENCOUNTER → 2023-10-22 16:11 | Outpatient (CLI) | payer OTHER, MEDICAID, SELFPAY ==
[2023-10-22 18:13] LABS: HIV 1 & 2 Ab/Ag 4th Gen Combo NEGATIVE (NEGATIVE)
[2023-10-22 18:56] LABS: Urine N gonorrhoeae NOT DETECTED
[2023-10-22 19:04] LABS: Urine Chlamydia NOT DETECTED
== END ==
PROVIDERS: PCP Registered Nurse Diabetes Educator; Referring Provider Physician Assistant; Visit Provider Physician Assistant
DX: Z11.3 Encounter for screening for infections with a predominantly sexual mode of transmission (principal)
CPT/HCPCS: 36415; 87389; 87491; 87591

== ENCOUNTER → 2024-02-17 09:18 | Outpatient (CLI) | payer OTHER, MEDICAID, SELFPAY ==
[2024-02-17 15:03] LABS: Urine N gonorrhoeae NOT DETECTED
[2024-02-17 15:16] LABS: Urine Chlamydia NOT DETECTED
== END ==
PROVIDERS: PCP Registered Nurse Diabetes Educator; Visit Provider Obstetrics & Gynecology
DX: Z34.81 Encounter for supervision of other normal pregnancy, first trimester (principal); Z3A.10 10 weeks gestation of pregnancy
CPT/HCPCS: 87491; 87591

== ENCOUNTER → 2024-02-17 09:39 | Outpatient (CLI) | payer OTHER, MEDICAID, SELFPAY ==
[2024-02-17 10:23] LABS: Add Manual Diff / Slide Review NO; Basophils Absolute Auto 0 /uL (0-100); Basophils Percent Auto 0.2 % (0-2); Eosinophils Absolute Auto 300 /uL (0-450); Eosinophils Percent Auto 3.2 % (2-4); Hematocrit 39.3 % (36-46); Hemoglobin 13.5 g/dL (12.0-16.0); Lymphocytes Absolute Auto 1700 /uL (1100-4500); Lymphocytes Percent Auto 19.4 % (25-40); Mean Corpuscular HGB Conc 34.4 % (30-36); Mean Corpuscular Hemoglobin 30.9 PG (26-34); Mean Corpuscular Volume 90.1 fL (80-100); Monocytes Absolute Auto 500 /uL (0-900); Monocytes Percent Auto 5.4 % (3-14); Neutrophils Absolute Auto 6100 /uL (1500-7000); Neutrophils Percent Auto 71.8 % (50-75); Platelet Count 268 X10^3/uL (150-400); Red Blood Cell Count 4.37 X10^6/uL (4.0-5.2); Red Cell Distribution Width 12.6 % (11.6-14.8); White Blood Cell Count 8.6 X10^3/uL (4.5-11.0)
[2024-02-17 10:40] LABS: Alanine Aminotransferase 13 IU/L (<35); Albumin 4.5 g/dL (3.5-5.0); Albumin Globulin Ratio 1.4 (1.0-2.8); Alkaline Phosphatase 69 U/L (38-126); Aspartate Aminotransferase 23 IU/L (14-36); BUN Creatinine Ratio 11.1 (6-22); Bilirubin Total 0.5 mg/dL (0.2-1.3); Blood Urea Nitrogen 6 mg/dL (7-17); Calcium 9.2 mg/dL (8.4-10.2); Carbon Dioxide 22 mmol/L (22-32); Chloride 104 mmol/L (98-107); Estimated Glomerular Filt Rate > 60 mL/min (>60); Globulin 3.2 g/dL (1.7-4.1); Glucose 85 mg/dL (70-100); HEMOLYSIS < 15 (0-50); Potassium 3.8 mmol/L (3.4-5.1); Sodium 135 mmol/L (137-145); Total Protein 7.7 g/dL (6.3-8.2)
[2024-02-18 04:10] LABS: RPR Screen Non Reactive (Non Reactive)
[2024-02-18 09:11] LABS: Varicella IgG Antibody Non Reactive (Non Reactive)
[2024-02-18 15:27] LABS: Hepatitis B Surface Antigen NEGATIVE s/c (NEGATIVE); Rubella Antibody IgG 1.3 IU/mL (>15)
[2024-02-18 15:57] LABS: HIV 1 & 2 Ab/Ag 4th Gen Combo NEGATIVE (NEGATIVE); Hep C Virus Ab w/Reflex Quant NEGATIVE s/c (NEGATIVE)
== END ==
PROVIDERS: PCP Registered Nurse Diabetes Educator; Referring Provider Obstetrics & Gynecology; Visit Provider Obstetrics & Gynecology
DX: Z34.81 Encounter for supervision of other normal pregnancy, first trimester (principal); Z3A.10 10 weeks gestation of pregnancy
CPT/HCPCS: 36415; 80053; 80055; 86787; 86803; 86850; 86900; 86901; 87389; 87491; 87591

== ENCOUNTER → 2024-03-21 13:07 | Outpatient (CLI) | payer OTHER, SELFPAY ==
[2024-03-21 13:14] LABS: Appearance Urine UA CLEAR; Bilirubin Urine UA NEGATIVE (NEGATIVE); Color Urine UA YELLOW; Glucose Urine UA NEGATIVE (Negative); Ketones Urine UA NEGATIVE (NEGATIVE); Leukocyte Esterase Urine UA NEGATIVE (NEGATIVE); Nitrite Urine UA NEGATIVE (Negative); Occult Blood Urine UA NEGATIVE (Negative); Protein Urine UA TRACE (Negative); Urobilinogen Urine UA 0.2 E.U./dL (0.2)
[2024-03-21 13:18] LABS: pH Urine UA 6.5 (4.5-8.0)
[2024-03-21 13:19] LABS: Urine Volume 10mL (spun)
[2024-03-21 13:20] LABS: Bacteria Urine None Seen; Culture Indicated Urine Cult Not Indicated; RBC Urine None Seen (0-5/HPF); Squamous Epithelial Cell Urine 5-10 /HPF (0-5/HPF); WBC Urine None Seen (0-5/HPF)
== END ==
PROVIDERS: PCP Registered Nurse Diabetes Educator; Visit Provider Obstetrics & Gynecology
DX: Z34.80 Encounter for supervision of other normal pregnancy, unspecified trimester (principal); R35.0 Frequency of micturition
CPT/HCPCS: 81001

== ENCOUNTER → 2024-05-11 11:15 | Outpatient (CLI) | payer OTHER, SELFPAY ==
--- NOTE | 2024-05-11 11:16 | DI.US.S_ITS ---
PROCEDURE: US OB >= 14 WEEKS FETUS INDICATIONS: Anatomy scan OUTSIDE/PRIOR DATING DATA: Provided working ELOY is 09/23/2024 TECHNIQUE: Real-time scanning was performed of the fetus, with image documentation and biometric measurements. COMPARISON: None available for review FINDINGS: General: A single living intrauterine gestation is present. Presentation: Vertex. Placenta: Placental position is anterior , without previa. Amniotic fluid index: 15.4 cm, normal range is 5-24 cm. Single deepest vertical pocket is 5.1 cm. heart rate: 125 beats per minute. Maternal cervical canal: 4.1 cm long. Normal lower limit is 2.5 cm. biometrics: Biparietal diameter: 5.1 centimeters, 21 weeks and 2 days Head circumference: 18.5 centimeters, 20 weeks and 6 days Abdominal circumference: 17.4 centimeters, 22 weeks and 2 days Femur length: 3.6 centimeters, 21 weeks and 3 days Clinically estimated gestational age: 20 weeks and 5 days Composite gestational age from present scan: 21 weeks and 3 days Estimated weight and percentile: 450 grams, 93 percent Anatomic survey: Neuro: Ventricles are non-dilated at less than 10 mm. Cisterna magna is normal at 3-11 mm. Cerebellum is normal in size and morphology. Nuchal skin fold: Normal at less than 6 mm between 14-21 weeks gestational age. Face: Nose and lips, facial profile are normal. Spine: No evidence for spina bifida. Heart: 4-chambered heart is present, with normal ventricular outflow tracts. Diaphragm: Diaphragm is intact. Stomach: Left-sided stomach is present. Kidneys: No hydronephrosis. Normal is less than 5 mm in 2nd trimester, less than 7 mm in 3rd trimester. Cord: 3-vessel cord has orthotopic insertion. Bladder: Normal in size. Extremities: All 4 extremities identified. IMPRESSION: Living intrauterine gestation in vertex presentation. Normal DENILSON. EFW is at the 93rd percentile, which is slightly larger than expected, using the provided ELOY. Consider follow-up for growth. No significant abnormalities otherwise on routine anatomic survey. Dictated by: Aleksandr Easley M.D. on 05/11/2024 at 16:46 Approved by: Aleksandr Easley M.D. on 05/11/2024 at 16:49
== END ==
PROVIDERS: PCP Registered Nurse Diabetes Educator; Referring Provider Obstetrics & Gynecology; Visit Provider Obstetrics & Gynecology
DX: Z36.89 Encounter for other specified antenatal screening (principal); Z3A.21 21 weeks gestation of pregnancy
CPT/HCPCS: 76811; 82105; 82677; 84702; 86336

== ENCOUNTER → 2024-05-11 12:25 | Outpatient (CLI) | payer OTHER, SELFPAY ==
[2024-05-11 13:30] LABS: Natera Collection Specimen Collected
[2024-05-16 14:08] LABS: AFP, Serum 85.6 ng/mL (.); Calc Gestational Age EDD (.); Estriol, Free 3.68 ng/mL (.); Inhibin A, Dimeric 231.75 pg/mL (.); Inhibin A, MoM 0.94 (.); Maternal Ethnicity Caucasian (.); Maternal Weight 116 lbs (.); Number of Fetuses No (.); OSBR Risk 1 IN 6916 (.); Results Report (.); Test Results *Screen Negative* (.); hCG, MoM 1.06 (.); hCG, Serum 30234 mIU/mL (.)
[2024-05-17 09:07] LABS: AFP PDF SCANNED
== END ==
PROVIDERS: PCP Registered Nurse Diabetes Educator; Referring Provider Obstetrics & Gynecology; Visit Provider Obstetrics & Gynecology
DX: Z3A.20 20 weeks gestation of pregnancy (principal)
CPT/HCPCS: 82105; 82677; 84702; 86336

== ENCOUNTER → 2024-06-14 11:21 | Outpatient (CLI) | payer OTHER, SELFPAY ==
[2024-06-14 13:28] LABS: Hemoglobin 11.7 g/dL (12.0-16.0)
[2024-06-14 13:58] LABS: GTT (PREG) 1 Hour PP 50gm Dose 151 mg/dL (76-139)
== END ==
PROVIDERS: PCP Registered Nurse Diabetes Educator; Referring Provider Obstetrics & Gynecology; Visit Provider Obstetrics & Gynecology
DX: Z34.82 Encounter for supervision of other normal pregnancy, second trimester (principal); Z3A.26 26 weeks gestation of pregnancy
CPT/HCPCS: 36415; 82950; 85014; 85018

== ENCOUNTER 2024-07-05 19:57 | Outpatient (CLI) | payer OTHER, SELFPAY | END 2024-07-05 21:28 | disposition home or self-care (01) | LOC: OB 07-06 07:03 | PROVIDERS: PCP Registered Nurse Diabetes Educator; Referring Provider Student in an Organized Health Care Education/Training Program; Visit Provider Student in an Organized Health Care Education/Training Program | DX: Z34.83 Encounter for supervision of other normal pregnancy, third trimester (principal); Z3A.28 28 weeks gestation of pregnancy | CPT/HCPCS: 59025; 96360; G0378; G0379 ==

== ENCOUNTER → 2024-07-21 08:04 | Outpatient (CLI) | payer OTHER, SELFPAY ==
[2024-07-21 10:52] LABS: Glucose 1 Hour Gest 152 mg/dL (76-180)
[2024-07-21 11:11] LABS: Glucose 2 Hour Gest 104 mg/dL (76-155)
[2024-07-21 11:26] LABS: Glucose Tol Interp,Gestational INTERPRETATION
[2024-07-21 12:03] LABS: Glucose Fasting Gestational 83 mg/dL (76-95)
[2024-07-21 12:39] LABS: Glucose 3 Hour Gest 85 mg/dL (76-140)
== END ==
PROVIDERS: PCP Registered Nurse Diabetes Educator; Referring Provider Obstetrics & Gynecology; Visit Provider Obstetrics & Gynecology
DX: R73.09 Other abnormal glucose (principal)
CPT/HCPCS: 36415; 82951; 82952

== ENCOUNTER → 2024-08-09 11:13 | Outpatient (CLI) | payer OTHER, SELFPAY | PROVIDERS: PCP Registered Nurse Diabetes Educator; Visit Provider Obstetrics & Gynecology | DX: R35.0 Frequency of micturition (principal) | CPT/HCPCS: 87086 ==

== ENCOUNTER → 2024-08-18 11:25 | Outpatient (CLI) | payer OTHER, SELFPAY ==
[2024-08-18 12:07] LABS: Alanine Aminotransferase 37 IU/L (<35); Albumin Globulin Ratio 1.3 (1.0-2.8); Alkaline Phosphatase 299 U/L (38-126); Aspartate Aminotransferase 43 IU/L (14-36); Bilirubin Total 0.7 mg/dL (0.2-1.3); Bilirubin Unconjugated 0.3 mg/dL (0.0-1.1); Globulin 3.2 g/dL (1.7-4.1); HEMOLYSIS < 15 (0-50); Total Protein 7.2 g/dL (6.3-8.2)
[2024-08-20 14:08] LABS: Bile Acids 50.6 umol/L (0.0-10.0)
== END ==
PROVIDERS: PCP Registered Nurse Diabetes Educator; Referring Provider Obstetrics & Gynecology; Visit Provider Obstetrics & Gynecology
DX: O99.719 Diseases of the skin and subcutaneous tissue complicating pregnancy, unspecified trimester (principal); L29.9 Pruritus, unspecified
CPT/HCPCS: 36415; 80076; 82239

== ENCOUNTER 2024-08-23 11:26 | Outpatient (CLI) | payer OTHER, SELFPAY ==
[2024-08-23 12:20] LABS: Alanine Aminotransferase 42 IU/L (<35); Albumin 3.7 g/dL (3.5-5.0); Albumin Globulin Ratio 1.1 (1.0-2.8); Alkaline Phosphatase 261 U/L (38-126); Aspartate Aminotransferase 49 IU/L (14-36); BUN Creatinine Ratio 10.5 (6-22); Bilirubin Total 0.6 mg/dL (0.2-1.3); Blood Urea Nitrogen 6 mg/dL (7-17); Carbon Dioxide 21 mmol/L (22-32); Chloride 106 mmol/L (98-107); Estimated Glomerular Filt Rate > 60 mL/min (>60); Globulin 3.3 g/dL (1.7-4.1); Glucose 105 mg/dL (70-99); HEMOLYSIS < 15 (0-50); Potassium 3.7 mmol/L (3.4-5.1); Sodium 136 mmol/L (137-145)
[2024-08-23 12:37] LABS: Add Manual Diff / Slide Review NO; Basophils Absolute Auto 0 /uL (0-100); Basophils Percent Auto 0.1 % (0-2); Eosinophils Absolute Auto 100 /uL (0-450); Eosinophils Percent Auto 0.9 % (2-4); Hematocrit 38.6 % (36-46); Hemoglobin 13.2 g/dL (12.0-16.0); Lymphocytes Absolute Auto 1500 /uL (1100-4500); Lymphocytes Percent Auto 19.2 % (25-40); Mean Corpuscular HGB Conc 34.3 % (30-36); Mean Corpuscular Hemoglobin 31.5 PG (26-34); Mean Corpuscular Volume 91.8 fL (80-100); Monocytes Absolute Auto 300 /uL (0-900); Monocytes Percent Auto 3.5 % (3-14); Neutrophils Absolute Auto 6000 /uL (1500-7000); Neutrophils Percent Auto 76.3 % (50-75); Platelet Count 263 X10^3/uL (150-400); Red Cell Distribution Width 12.9 % (11.6-14.8); White Blood Cell Count 7.8 X10^3/uL (4.5-11.0)
[2024-08-23 13:53] LABS: Strep Grp B PCR NEG for Grp B Strep
[2024-08-23 14:16] LABS: Creatinine Urine Random 193.68 mg/dL; Protein (Total) Urine Random 23 mg/dL (0-12); Protein Creatinine Ratio Urine 0.11 GRAM/24H
== END 2024-08-23 12:30 | disposition home or self-care (01) ==
LOC: LABOR 12:06 → OB 13:42
PROVIDERS: PCP Registered Nurse Diabetes Educator; Referring Provider Obstetrics & Gynecology; Visit Provider Obstetrics & Gynecology
DX: Z34.83 Encounter for supervision of other normal pregnancy, third trimester (principal); Z3A.35 35 weeks gestation of pregnancy
CPT/HCPCS: 59025; 80053; 82570; 84156; 85025; 87081; 87147; 87653; G0378; G0379

== ENCOUNTER 2024-08-26 11:10 | Outpatient (CLI) | payer OTHER, SELFPAY ==
--- NOTE | 2024-08-26 11:45 | PM.OBTRLD ---
Visit Information Visit Information Date of evaluation: 08/26/24 Primary OB Provider: Vicki Verma On-call OB Provider: Vicki Verma Reason for Evaluation: Yes non-stress test Comments/Additional reasons for admission: ICHP, new dx [facility] Medical History (Updated 09/03/24 @ 12:11 by Nick Meyer MD) Intrahepatic cholestasis of Liver enzyme elevation IBS (irritable bowel syndrome) Screening for malignant neoplasm of cervix Trapezius muscle spasm Pelvic pain Nasal fracture Blepharitis Fatigue Surgical History (Updated 01/25/24 @ 15:12 by Danisha Garduno, RN) History of rhinoplasty (~2022) Family History (Updated 01/25/24 @ 15:13 by Danisha Garduno, RN) Mother Hypertension Aunt Diabetes mellitus Family/Other Diabetes mellitus Social History marital status: unmarried,single number of children: 0 household members: family lives independently: Yes caregiver/support person: No housing: house pets and animals: Yes (dog) education level: high school occupational status: employed current occupational exposures/hazards: Yes (cleaning chemicals) special latisha needs: No travel history: recent seatbelt use: always water heater temp set < 120 deg: Yes working smoke detector in home: Yes fire extinguisher in home: Yes carbon monox detector in home: Yes firearms in home: No do you feel safe at home: Yes second hand exposure: No alcohol intake: former substance use type: marijuana during the past year weight has: remained stable well-balanced diet: daily or most days daily servings fruits/ve-4 caffeine: Yes (discussed 200mg limit) Type(s) of exercise: aerobic and weight lifting frequency: 5-6 times per week Evaluation Evaluation Baseline heart rate: 140 Variability: Average (6-10) monitor accelerations: Present Monitor Decelerations: Absent Category of Tracing: Reactive Status: Category l Diagnosis, Plan/Disposition Plan/Disposition Plan: continue testing as scheduled IOL [id number]
== END 2024-08-26 11:50 | disposition home or self-care (01) ==
LOC: LABOR 11:57 → OB 13:33
PROVIDERS: PCP Registered Nurse Diabetes Educator; Referring Provider Obstetrics & Gynecology; Visit Provider Obstetrics & Gynecology
DX: Z36.9 Encounter for antenatal screening, unspecified (principal)
CPT/HCPCS: 59025; G0378; G0379

== ENCOUNTER 2024-08-29 16:13 | Outpatient (CLI) | payer OTHER, SELFPAY | END 2024-08-29 16:58 | disposition home or self-care (01) | LOC: LABOR 16:24 → OB 08-30 06:44 | PROVIDERS: PCP Registered Nurse Diabetes Educator; Referring Provider Obstetrics & Gynecology; Visit Provider Obstetrics & Gynecology | DX: O36.8130 Decreased fetal movements, third trimester, not applicable or unspecified (principal); O26.893 Other specified pregnancy related conditions, third trimester; R10.30 Lower abdominal pain, unspecified; Z3A.36 36 weeks gestation of pregnancy | CPT/HCPCS: 59025; G0378; G0379 ==

== ENCOUNTER 2024-08-30 16:18 | Outpatient (CLI) | payer OTHER, SELFPAY | END 2024-08-30 16:57 | disposition home or self-care (01) | LOC: OB 08-31 06:41 | PROVIDERS: PCP Registered Nurse Diabetes Educator; Referring Provider Obstetrics & Gynecology; Visit Provider Obstetrics & Gynecology | DX: O26.643 Intrahepatic cholestasis of pregnancy, third trimester (principal); Z3A.36 36 weeks gestation of pregnancy | CPT/HCPCS: 59025; G0378; G0379 ==

== ENCOUNTER 2024-08-31 20:09 | Inpatient (IN) | payer OTHER, SELFPAY ==
[2024-08-31 20:49] VITALS: BP 117/72
[2024-08-31 21:24] LABS: Add Manual Diff / Slide Review NO; Basophils Absolute Auto 0 /uL (0-100); Basophils Percent Auto 0.3 % (0-2); Eosinophils Absolute Auto 100 /uL (0-450); Hematocrit 37.2 % (36-46); Hemoglobin 12.8 g/dL (12.0-16.0); Lymphocytes Absolute Auto 2000 /uL (1100-4500); Lymphocytes Percent Auto 23.2 % (25-40); Mean Corpuscular HGB Conc 34.5 % (30-36); Mean Corpuscular Hemoglobin 31.8 PG (26-34); Monocytes Absolute Auto 400 /uL (0-900); Monocytes Percent Auto 4.9 % (3-14); Neutrophils Absolute Auto 6000 /uL (1500-7000); Neutrophils Percent Auto 70.6 % (50-75); Platelet Count 243 X10^3/uL (150-400); Red Blood Cell Count 4.04 X10^6/uL (4.0-5.2); White Blood Cell Count 8.5 X10^3/uL (4.5-11.0)
[2024-08-31 21:54] LABS: Alanine Aminotransferase 23 IU/L (<35); Albumin 3.7 g/dL (3.5-5.0); Albumin Globulin Ratio 1.2 (1.0-2.8); Alkaline Phosphatase 255 U/L (38-126); BUN Creatinine Ratio 15.8 (6-22); Bilirubin Total 0.6 mg/dL (0.2-1.3); Blood Urea Nitrogen 9 mg/dL (7-17); Calcium 9.1 mg/dL (8.4-10.2); Carbon Dioxide 21 mmol/L (22-32); Chloride 106 mmol/L (98-107); Estimated Glomerular Filt Rate > 60 mL/min (>60); Globulin 3.2 g/dL (1.7-4.1); Glucose 111 mg/dL (70-99); Sodium 134 mmol/L (137-145); Total Protein 6.9 g/dL (6.3-8.2)
[2024-08-31 22:07] LABS: Aspartate Aminotransferase 35 IU/L (14-36); HEMOLYSIS 92 (0-50); Potassium 3.9 mmol/L (3.4-5.1)
[2024-08-31] MEDS: DINOPROSTONE VAG (CERVIDIL) 10 MG VAG (23:13)
--- NOTE | 2024-09-01 00:47 | PM.OBHP.IH.1 ---
OB HPI Date/Time Date of admission: 08/31/24 Date Patient Seen: 08/31/24 Time Patient Seen: 20:30 History of Present Condition Chief complaint: IOL, IHCP at late ELOY Calculator Estimated Delivery Date Method Current WG Current Estimate 09/23/24 Ultrasound #1 36w 6d Other Estimates 09/10/24 LMP (Certain) 38w 5d Estimated Gestational Age (weeks): 36w5d : 2 Para: 0 Narrative: 29yo at 36w5d by 8wk US presents for medically indicated IOL at late secondary to symptomatic intrahepatic cholestasis of . PMHx notable for h/o prior elevated LFTs. course notable for elevated 1h OGTT/normal 3h OGTT, +GBS. Pt developed increasing pruritus at 34wga with subsequent identification of elevated bile acids (50) as well as elevated AST/ALT/ALP (43/37/299) and pt was started on TID ursodiol 300mg PO TID. Twice weekly NST surveillance initiated. At time of last office encounter 08/30 pt had presented to triage the night before due to concerns for decreased FM with reactive NST, however endorsed worsening pruritus and decision made to proceed with medically indicated IOL at late term per ACOG guidelines. Pt today states she is feeling well, no change in pruritus, +FM, denies VB/LOF/dysuria. Occasional cramping but no distinct painful contractions. Dating criteria OB: based on 1st trimester US only Ultrasounds: normal 1st trimester US and normal mid trimester US Obstetrical complications: other (intrahepatic cholestasis of ) Medical complications OB: none Indications Indication for induction OB: medical complication Preadmission Labs Last OB Lab Results: Blood Type O Positive 08/31/24, 21:05 Antibody Screen Negative 08/31/24, :05 Hct, (36-46) 37.2 % 08/31/24, 21:05 Hgb, (12.0-16.0) 12.8 g/dL 08/31/24, 21:05 Hep Bs Antigen, (NEGATIVE) Negative s/c 02/17/24, : Hepatitis C Antibody, (NEGATIVE) Negative s/c 02/17/24, : Rubella Antibody, (>15) 1.3 IU/mL L 02/17/24, : VZV IgG Antibody, (Non Reactive) Non reactive 02/17/24, 09:52 Glucose 1 Hr 50 gm, (76-139) 151 mg/dL H 06/14/24, 13:07 Group B Strep (PCR) Neg for grp b strep 08/23/24, 11:45 -: Chlamydia screen: negative, Gonorrhea screen: negative and Urine: negative -: PAP smear: Normal Genetic Screens: Cell-free DNA: Normal and Alpha-fetoprotein: Normal External Labs -: Urine: negative Prior (ies) Past Pregnancies Del. Date GA/Weeks Labor Lgth Wt Sex Route Outcome Anesthesia Place Delv Breastfeed Preg Comp Name 03/16/13 6-8 spontaneous Delivery Date: 03/16/13 Last Updated by: Danisha Garduno RN passed spontaneously, no complications Evaluation Evaluation Baseline heart rate: 135 Variability: Moderate (6-25) monitor accelerations: Present Monitor Decelerations: Absent Uterine Contraction Intensity: Mild Category of Tracing: Reactive Status: Category l Dilation (cm): 0.5 Effacement (%): 0 Dilation: Closed Effacement: 0-30% station: -4 Position of cervix: posterior Consistency: medium Clemons score: 1 [facility] Medical History (Updated 08/23/24 @ 12:23 by Vicki Verma MD) Intrahepatic cholestasis of Liver enzyme elevation IBS (irritable bowel syndrome) Screening for malignant neoplasm of cervix Trapezius muscle spasm Pelvic pain Nasal fracture Blepharitis Fatigue Surgical History (Updated 01/25/24 @ 15:12 by Danisha Garduno RN) History of rhinoplasty (~2022) Family History (Updated 01/25/24 @ 15:13 by Danisha Garduno RN) Mother Hypertension Aunt Diabetes mellitus Family/Other Diabetes mellitus Social History marital status: unmarried,single number of children: 0 household members: family (parents, brothers, in-laws) lives independently: Yes caregiver/support person: No housing: house pets and animals: Yes (dog) education level: high school (finishing up school this year) occupational status: employed (housekeeping) current occupational exposures/hazards: Yes (cleaning chemicals) special latisha needs: No travel history: recent (domestic only) seatbelt use: always water heater temp set < 120 deg: Yes working smoke detector in home: Yes fire extinguisher in home: Yes carbon monox detector in home: Yes firearms in home: No do you feel safe at home: Yes Smoking Status: Never smoker second hand exposure: No alcohol intake: former (very occasionally when not ) substance use type: marijuana (not since 2021) during the past year weight has: remained stable well-balanced diet: daily or most days daily servings fruits/ve-4 caffeine: Yes (discussed 200mg limit) Type(s) of exercise: aerobic and weight lifting frequency: 5-6 times per week Meds Home Medications and Allergies Home Medications ?Medication ?Instructions ?Recorded ?Confirmed ?Type fluticasone propionate 50 0 mcg intranasal QD-BID 11/26/22 08/31/24 History mcg/actuation nasal spray,suspension vitamin-ferrous sulfate 1 tab PO DAILY 01/25/24 08/31/24 History 27 mg iron-folic acid 0.8 mg tablet sennosides 8.6 mg tablet (Senna 8.6 mg PO BID #60 tabs 02/17/24 08/31/24 Rx Laxative) ursodiol 300 mg capsule 300 mg PO TID #90 caps 08/18/24 08/31/24 Rx Allergies Allergy/AdvReac Type Severity Reaction Status Date / Time No Known Drug Allergies Allergy Verified 08/30/24 16:00 Review of Systems Review of Systems ROS: Yes All systems reviewed with the patient and are negative except as otherwise documented OB Exam HENMT Head: normal to inspection Resp Effort & Inspection: normal respiratory effort and able to speak in complete sentences Cardio Rate: regular rate Extremities Lower extremity: Yes normal to inspection GI Inspection: normal to inspection Palpation: Yes soft Other: gravid, aliya cephalic 6# External Female Exam: Yes normal external appearance Speculum Exam - Vagina: Yes normal appearance of the vagina Objective Labs 08/31/24 21:05 08/31/24 21:05 Labs: Laboratory Results - last 24 hr 08/31/24 21:05 WBC 8.5 RBC 4.04 Hgb 12.8 Hct 37.2 MCV 92.0 MCH 31.8 MCHC 34.5 RDW 13.0 Plt Count 243 Neut % (Auto) 70.6 Lymph % (Auto) 23.2 L Miner % (Auto) 4.9 Eos % (Auto) 1.0 L Baso % (Auto) 0.3 Neut # (Auto) 6000 Lymph # (Auto) 2000 Miner # (Auto) 400 Eos # (Auto) 100 Baso # (Auto) 0 Sodium 134 L Potassium 3.9 Chloride 106 Carbon Dioxide 21 L BUN 9 Creatinine 0.57 Estimated GFR > 60 BUN/Creatinine Ratio 15.8 Glucose 111 H Calcium 9.1 Total Bilirubin 0.6 AST 35 ALT 23 Alkaline Phosphatase 255 H Total Protein 6.9 Albumin 3.7 Globulin 3.2 Albumin/Globulin Ratio 1.2 Blood Type O Positive Antibody Screen Negative Assessment and Plan Assessment and Plan Assessment and Plan narrative: 29yo at 36w5d by 8wk US presents for medically indicated IOL at late secondary to cholestasis of IOL Cat 1 tracing, maternal VSS/afebrile +GBS, start ampicillin with ROM/active labor continue PO ursodiol 300mg TID until delivery CEFM/toco cervidil to be placed per RN pending adequate staffing ratio for overnight cervical ripening, remove at 12h with anticipated need for additional ripening method thereafter pending clinical response and tolerance Patient counseled regarding goal of induction of labor achieve active labor/6cm cervical dilation. We reviewed that there is an increased risk of unsuccessful induction in setting of primarity and late gestation wherein delivery via section may be indicated. Patient verbalized understanding and desires to proceed. Patient is consented for vaginal, vaginal operative and delivery as well as transfusion of blood products as medically indicated. Time-Based Coding :: [TOTAL MINUTES] spent with patient and on the chart (including review of chart, obtaining history, exam, reviewing outside data, placing orders, documenting exam and treatment plan, and counseling patient) on [DATE].
[2024-09-01] MEDS: ursodioL 300 MG CAPSULE PO ×2 (11:45→19:34)
--- NOTE | 2024-09-01 12:26 | PM.OBPNLAB ---
Date/Time Date Patient Seen: 09/01/24 Time Patient Seen: 12:26 Pain Control Pain control: tolerating well Pelvic Exam Dilation (cm): 1 Effacement (%): 50 station: -3 Amniotic membrane status: Intact Contractions Contractions on admission: none Monitor mode: External Contraction pattern: Irregular Contraction phase: Resting Contraction intensity: Mild Status status: Category l Heart Rate Baseline: 135 Monitor Accelerations: Present Monitor Decelerations: Absent Monitor Variability: Moderate Assessment and Plan Assessment: other (Ripening continues following cervidil removal at 1100.) Plan: continuous present management (Continue ripening with PO cytotec once contractions space out a bit. Reevaluate later today for possible vincent balloon insertion and/or transition to pitocin induction once cervix is more favorable. Patient aware of the plan and agrees.)
[2024-09-01] MEDS: LACTATED RINGERS 500 ML 1000 ML IV (13:34)
[2024-09-01] MEDS: miSOPROStoL 25 MCG TABLET 50 MCG PO (15:29)
--- NOTE | 2024-09-01 15:56 | PM.OBPNLAB ---
Date/Time Date Patient Seen: 09/01/24 Time Patient Seen: 15:57 Pain Control Pain control: tolerating well Pelvic Exam Dilation (cm): 1 Effacement (%): 70 station: -3 Amniotic membrane status: Intact Contractions Contractions on admission: none Monitor mode: External Contraction pattern: Regular (q4M) Contraction phase: Resting Contraction intensity: Mild Status status: Category l Heart Rate Baseline: 135 Monitor Accelerations: Present Monitor Decelerations: Absent Monitor Variability: Moderate Assessment and Plan Assessment: other (Ripening onging) Comments: Cervix more effaced and softening/rotation have also occures so BS now 6. Discussed possible vincent bulb insertion but declined by patient. Will dose with Cervidil 50 mg PO x 1 and recheck after 6 hrs. (@ 2100) and make a decision re: starting pitocin at that time.
--- NOTE | 2024-09-01 21:49 | PM.OBPNLAB ---
Date/Time Date Patient Seen: 09/01/24 Time Patient Seen: 21:49 (Remote progress note entry) Pain Control Pain control: tolerating well (7/10 pain scale at contraction apex) Pelvic Exam Dilation (cm): 3 Effacement (%): 80 station: -3 Amniotic membrane status: Ruptured (Clear fluid) Comments: BS=7 Contractions Contractions on admission: none Monitor mode: External Contraction pattern: Regular (q4M) Contraction phase: Resting Contraction intensity: Mild Status status: Category l Heart Rate Baseline: 140 Monitor Accelerations: Present Monitor Decelerations: Absent Monitor Variability: Moderate Assessment and Plan Assessment: induction ongoing Plan: begin patient augmentation Comments: BS and SROM should accelerate progress into active phase. OK for FILIBERTO as desired.
[2024-09-01] MEDS: LACTATED RINGERS 1,000 ML 100 ML IV (21:53)
[2024-09-01] MEDS: OXYTOCIN PREMIX 30 UNIT/500 ML PLAST..BAG IV (21:54)
[2024-09-01] MEDS: AMPICILLIN 2,000 MG in SODIUM CHLORIDE 0.9% 100 ML 200 MG IV (22:00)
[2024-09-02] MEDS: LACTATED RINGERS 1,000 ML 999 ML IV ×2 (00:44→01:41)
[2024-09-02] MEDS: FENT 2MCG/ML BUPIV 0.125% EPI 200 MCG/100 ML PLAST..BAG 6 MCG EPIDURAL (01:35)
[2024-09-02] MEDS: ePHEDrine 50 MG/ML VIAL 15 MG IV (01:45)
--- NOTE | 2024-09-02 01:45 | P.PCN_ITS ---
Regional Block Pre-procedure Procedure: Continuous Lumbar Epidural for L&D Attending OB provider: Vicki Verma PMH/ROS narrative: here for IOL d/t symptomatic intrahepatic cholestasis of requesting FILIBERTO/CSE for labor pain. Health history otherwise benign. PSH/Anesthesia history narrative: None. Exam narrative: See pre-anesthesia evaluation form. ASA Class: III Labs: Hct 37.2 % (36-46) 08/31/24 21:05 Plt Count 243 X10^3/uL (150-400) 08/31/24 21:05 Medications: Current Medications Generic Name Dose Route Start Last Admin Trade Name Freq PRN Reason Stop Dose Admin Butorphanol Tartrate 0.5 mg 09/02/24 01:38 Butorphanol 1 Mg/Ml Vial IV 09/03/24 01:39 Q3HR PRN PRURITUS Calcium Carbonate 1,000 mg 08/31/24 20:52 Calcium Carbonate 500 Mg Tab PO Q2HR PRN Dyspepsia Carboprost Tromethamine 250 mcg 08/31/24 20:52 Carboprost 250 Mcg/Ml Ampul IM Q90M PRN Bleeding Diphenhydramine HCl 25 mg 09/02/24 01:38 Diphenhydramine 50 Mg/Ml Vial IV 09/03/24 01:39 Q3HR PRN PRURITUS Oxytocin/Lactated Ringer's 30 unit in 500 mls @ 200 mls/hr 08/31/24 20:52 Oxytocin Premix IV CONT PRN Bleeding Protocol Tranexamic Acid 1,000 mg/ 100 mls @ 600 mls/hr 08/31/24 20:52 Sodium Chloride IV NOW PRN Bleeding Ampicillin Sodium 1,000 mg/ 100 mls @ 200 mls/hr 09/01/24 01:00 09/01/24 17:00 Sodium Chloride IV Not Given Q4H TALITA Lactated Ringer's 1,000 mls @ 100 mls/hr 09/01/24 19:15 09/02/24 01:41 Lactated Ringers IV 999 mls/hr CONT PRN Administration Labor Induction Oxytocin/Lactated Ringer's 30 unit in 500 mls @ 2 mls/hr 09/01/24 21:37 09/01/24 21:54 Oxytocin Premix IV 2 milliunit/min TITRATE TALITA 2 mls/hr Protocol Administration 2 MILLIUNIT/MIN Lidocaine HCl 20 ml 08/31/24 20:52 Lidocaine 1% 20 Ml INJ INTRA-OP PRN Post Delivery Methylergonovine Maleate 0.2 mg 08/31/24 20:52 Methylergonovine 0.2 Mg Tablet PO Q6HR PRN Heavy Bleeding Methylergonovine Maleate 0.2 mg 08/31/24 20:52 Methylergonovine 0.2 Mg/Ml Vial IM NOW PRN Bleeding Metoclopramide HCl 10 mg 09/02/24 01:38 Metoclopramide 10 Mg/2 Ml Inj IV 09/03/24 01:39 Q4H PRN Nausea Mineral Oil 30 ml 08/31/24 20:52 Mineral Oil 30 Ml Udc TOP PRN PRN Version Misoprostol 800 mcg 08/31/24 20:52 Misoprostol 200 Mcg Tablet WA NOW PRN Bleeding Misoprostol 400 mcg 08/31/24 20:52 Misoprostol 200 Mcg Tablet SL NOW PRN Bleeding Misoprostol 50 mcg 09/01/24 13:30 09/01/24 21:35 Misoprostol 25 Mcg Tablet PO Not Given Q6H [facility] Nalbuphine HCl 5 mg 09/02/24 01:38 Nalbuphine 20 Mg/Ml Ampul IV Q6H PRN PRURITIS Naloxone HCl 0.2 mg 08/31/24 20:52 Naloxone 0.4 Mg/Ml Vial IV Q2MIN PRN Opiate Reversal Naloxone HCl 0.4 mg 09/02/24 01:38 Naloxone 0.4 Mg/Ml Vial IV Q2MIN PRN Opiate Reversal Naloxone HCl 0.1 mg 09/02/24 01:38 Naloxone 0.4 Mg/Ml Vial IV 09/02/24 01:39 NOW ONE Ondansetron HCl 4 mg 08/31/24 20:52 Ondansetron 4 Mg/2 Ml Inj IV Q4HR PRN Nausea And Vomiting Ondansetron HCl 4 mg 09/02/24 05:00 Ondansetron 4 Mg/2 Ml Inj IV 09/02/24 09:01 Q4HR [facility] Oxytocin 10 unit 08/31/24 20:52 Oxytocin 10 Unit/Ml Vial IM NOW PRN Bleeding Ursodiol 300 mg 09/01/24 09:00 09/01/24 19:34 Ursodiol 300 Mg Capsule PO 300 mg TID [facility] Administration Allergies: Allergies Allergy/AdvReac Type Severity Reaction Status Date / Time No Known Drug Allergies Allergy Verified 08/30/24 16:00 Procedure Insertion date: 09/02/24 Insertion time: :23 Prep/Local: 1% lidocaine (CHG to back for skin prep) Interspace: L3/4 Patient position: sitting Needle: 18 gauge Hustead (+27g Pencan through hustead for CSE (1mL 0.25% MPF bupivacaine)) Loss of resistance with: saline PATTI at (cm): 5 (5.5) Catheter placed at SKIN (cm): 12 Catheter in SPACE (cm): 7 (6.5) Sensory level: T10 Insertion: Yes CSF, No Blood, No Paresthesia with insertion, No Paresthesia with injection and No Test dose reaction Initial Medications TEST DOSE time: TEST DOSE: 1.5% lidocaine with epinephrine 1:200k (mL): 3 Infusion INFUSION: 0.125% bupivacaine and with fentanyl 2 mcg/mL Initial rate (mL/hr): 6 Subsequent interventions: 0142: 15mg IV ephedrine for hypotension to low 90's and some deceleration, pt otherwise asymptomatic. Favorable return to baseline BP and tracing per prior. Post-procedure Anesthesia date START: 09/02/24 Anesthesia time START: 01:10 Anesthesia date END: 09/02/24 Anesthesia time END: 04:00 Post-procedure Anesthesia Assessment: Yes CV function: HR/BP stable, Yes Resp function: RR/sat/airway adequate, Yes Post-op hydration adequate, Yes Pain control adequate, Yes Nausea & vomiting absent, Yes Temperature > 36 C, Yes Mental status appropriate and No Anesthesia complications
[2024-09-02] MEDS: AMPICILLIN 1,000 MG in SODIUM CHLORIDE 0.9% 100 ML 200 MG IV (01:52)
--- NOTE | 2024-09-02 04:11 | PM.OBPRVD ---
Events: Other (Intrahepatic cholestasis of ) Labor & Delivery Delivery date: 09/02/24 Delivery Time: 03:32 Intrapartal Events: Ineffective Pushing, Extended Tachycardia (2nd stage) and Intolerance (Second stage) Cervical ripening method: per Cervidil protocol Induction method: per pitocin protocol Delivery monitor: external FHT and external uterine Route of delivery: vacuum extraction (Applied +2 TIKA, EFW 6.5 - 7.5#, 4 pulls, no pop-offs) Indication for instrumentation: nonreassuring FHR tracing ( tachycardia with loss of variability, deep variables with each push) Episiotomy description: None L&D Laceration Description: Perineal - 2nd Degree Delivery repair: chromic Estimated blood loss (mL): 250 Anesthesia Type: Epidural Complications: None Narrative: The patient pushed ineffectively in the 2nd stage with the vertex remaining at +2 station. Due to persistent tachycardia associated with loss variability and deep variables with each contraction, the decision was made to move forward with vacuum extraction/assist. Four pulls were required without pop-off and all pressures remain below 550 mmHg and release of the vacuum between contractions. The was brought down to the introitus and gently delivered over the perineum in the TIKA position. A relatively tight nuchal cord was encountered and reduced once the had been delivered. No shoulder dystocia was encountered. Skin to skin contact was initiated immediately following delivery and delayed cord clamping was also performed as the infant was quite vigorous. The placenta was then delivered with gentle downward traction on the cord and intravenous Pitocin initiated immediately following delivery. bleeding was rapidly brought under control. The placenta was carefully inspected and found to be intact with an eccentric insertion of a three-vessel cord. Inspection of the perineum showed a second-degree perineal laceration which was closed with 2-0 chromic in the usual manner. Sponge, instrument, and needle counts were correct at the completion of the delivery process which was well tolerated by both mother and infant. [place] [facility] 1: gender: Female Presentation: vertex Position: Left Occiput Anterior Placenta delivery description: Spontaneous Cord Vessel Description: 3 Vessels score (1 min): 8 score (5 min): 9 weight: 6 lb 4.742 oz Plan for aftercare: Routine care
[2024-09-02] MEDS: ACETAMINOPHEN 325 MG TABLET 650 MG PO ×4 (05:57→23:38)
[2024-09-02] MEDS: DERMOPLAST SPRAY 20% 60 ML 1 SPRAY TOP (05:58)
[2024-09-02] MEDS: KETOROLAC 30 MG/ML VIAL IV (05:58)
[2024-09-02] MEDS: WITCH HAZEL/GLYCERIN PADS 1 EACH TOP (05:58)
[2024-09-02 06:23] LABS: Add Manual Diff / Slide Review NO; Basophils Absolute Auto 0 /uL (0-100); Basophils Percent Auto 0.3 % (0-2); Eosinophils Absolute Auto 0 /uL (0-450); Hematocrit 35.9 % (36-46); Hemoglobin 12.3 g/dL (12.0-16.0); Lymphocytes Absolute Auto 1300 /uL (1100-4500); Mean Corpuscular HGB Conc 34.2 % (30-36); Mean Corpuscular Hemoglobin 31.4 PG (26-34); Mean Corpuscular Volume 91.9 fL (80-100); Monocytes Absolute Auto 1000 /uL (0-900); Neutrophils Absolute Auto 13900 /uL (1500-7000); Neutrophils Percent Auto 85.7 % (50-75); Platelet Count 195 X10^3/uL (150-400); Red Cell Distribution Width 12.8 % (11.6-14.8); White Blood Cell Count 16.3 X10^3/uL (4.5-11.0)
[2024-09-02] MEDS: IBUPROFEN 600 MG TABLET PO ×3 (11:58→23:37)
[2024-09-02] MEDS: LANOLIN OINT 7 GM 1 APPLIC TOP (11:58)
[2024-09-03] MEDS: ACETAMINOPHEN 325 MG TABLET 650 MG PO ×2 (05:34→11:51)
[2024-09-03] MEDS: IBUPROFEN 600 MG TABLET PO ×2 (05:35→11:51)
--- NOTE | 2024-09-03 12:03 | P.DS_ITS ---
Discharge Providers Provider Date of admission: 08/31/24 20:09 Discharge Date: 09/03/24 Primary care physician: ESTEPHANIA Delgadillo Consults: 08/31/24 20:52 Consult to Anesthesiology Urgent Comment: Consulting Provider: Anesthesiologist Reason for consultation: Epidural 09/02/24 04:35 Consult to Store Hand Routine Comment: Discharge provider: Nick Meyer MD Summary Hospital Course Date Patient Seen: 09/03/24 Time Patient Seen: 12:04 Diagnoses: #vacuum assisted vaginal delivery #intrahepatic cholestasis of # mother Hospital Course: Admitted for [facility] 08[facility]24 for symptomatic intrahepatic cholestasis of with elevated bile acids. Progressed adequately with augmentation to complete dilation over the course of 24 hours. She had a VAVD of a live female infant with a 2nd degree perineal laceration that was repaired. Vacuum delivery/assist indicated due to ineffective maternal pushing in the 2nd stage labor with persistent tachycardia and deep variables with each contraction. Her course was uncomplicated. At discharge patient is ambulating well, tolerating normal diet, breast-feeding without difficulty, and pain is adequately controlled. She reports bleeding is similar to normal menses. Peripartum Data Infant Delivery Method: Assisted Delivery (Vacuum) Laceration Description: Perineal - 2nd Degree (2-0 chromic repair) complications: none [place]: Gender: Female Disposition of : home Discharge Diagnosis (1) Vacuum extractor delivery, delivered: Start Date: 09/02/24 Status: Acute (2) Intrahepatic cholestasis of : Status: Acute (3) Mother currently breast-feeding: Start Date: 09/02/24 Status: Acute Status at Discharge Cognitive/behavioral status at discharge: at baseline, oriented Functional status at discharge: independent ambulation Overall status at discharge: patient is progressing back to baseline Time Spent with Patient Time attestation: Total time spent providing and/or coordinating discharge services: 25 minutes Objective Labs 09/02/24 06:13 08/31/24 21:05 Exam Narrative Exam Narrative: General: Well-appearing, well-nourished, no distress HEENT: Moist mucous membranes, no pallor CV: Regular rate and rhythm, no murmur auscultated Resp: CTAB, comfortable work of breathing Abdomen: Soft, bowel sounds present, fundus firm below umbilicus with appropriate tenderness Extremities: No edema, no calf tenderness or evidence of DVT Discharge Plan Discharge Plan Patient Disposition: Home Provider Discharge Comment: Please review the written instructions you received when you were discharged from the hospital. Your follow-up appointment will be scheduled for 6 weeks after delivery and we look forward to seeing you then. If however in the meanwhile you have any issues, concerns, or questions, please contact the office either by phone at [phone], or via the patient portal. Discharge orders & Medications Prescriptions: New ibuprofen 600 mg tablet 600 mg PO Q8H PRN (Reason: pain) Qty: 60 0RF acetaminophen 325 mg tablet 650 mg PO Q6H PRN (Reason: pain) Qty: 60 1RF polyethylene glycol 3350 17 gram/dose powder 17 g PO DAILY PRN (Reason: constipation) Qty: 510 1RF lanolin Cream 1 applic topical PRN PRN (Reason: skin irritation) Qty: 9 6RF Continued vit-ferrous sulfat-FA 27 mg iron- 0.8 mg tablet 1 tab PO DAILY fluticasone propionate 50 mcg/actuation spray,suspension 0 mcg intranasal QD-BID sennosides [Senna Laxative] 8.6 mg tablet 8.6 mg PO BID Qty: 60 0RF Discontinued ursodiol 300 mg capsule 300 mg PO TID Qty: 90 3RF Medication counseling provided by Pharmacist: No Follow up/Referrals: Leandro Bennett ARNP [Primary Care Provider, Medical] Vicki Verma MD [Physician, BLENDING TECHNICIAN] - 09/30/24 11:00 am Referral Note: Please Check in at 10:45am Discharge Health Status Multidrug resistant organism: No MDRO Diet/Activity/Treatments Diet: Diet as Tolerated Activity: As tolerated Other treatments: [id number] Tylenol and/or ibuprofen may be used for additional pain relief. [id number] stool softeners and/or MiraLax may be used as needed for constipation. Skin/Wound/Dressing Care Report to your healthcare provider any signs of infection, such as:: chills, fever, increased pain, unusual drainage and unusual redness Dressing: N/A Visit Report/Discharge Packet Instructions: DI for Labor and Delivery, Vaginal , DI for and Nipple Soreness Stand Alone Forms: Discharge: Care, Patient Portal/API, Stroke Signs & Symptoms Discharge Data Primary Care Provider: Leandro Bennett Discharges patient from system. Discharge Date/Time: 09/03/24 15:10
== END 2024-09-03 15:10 | disposition home or self-care (01) | DRG 560 ==
PROVIDERS: Obstetrics & Gynecology; Admitting Provider Obstetrics & Gynecology; PCP Registered Nurse Diabetes Educator; Referring Provider Obstetrics & Gynecology; Visit Provider Obstetrics & Gynecology
DX: O26.643 Intrahepatic cholestasis of pregnancy, third trimester (principal); O60.14X0 Preterm labor third trimester with preterm delivery third trimester, not applicable or unspecified; O76 Abnormality in fetal heart rate and rhythm complicating labor and delivery; O70.1 Second degree perineal laceration during delivery; Z3A.36 36 weeks gestation of pregnancy; Z37.0 Single live birth
CPT/HCPCS: 36415; 59025; 59050; 59200; 59409; 80053; 85025; 86850; 86900; 86901; G0379; J0290; J1885; J2590